=== PATIENT | male | born 1975 | race Caucasian/White ===

== ENCOUNTER → 2020-12-13 15:07 | Outpatient (BNVA) | payer BC, SELFPAY | PROVIDERS: Family Provider Family Medicine; PCP Family Medicine; Visit Provider Specialist | DX: G40.309 Generalized idiopathic epilepsy and epileptic syndromes, not intractable, without status epilepticus (principal); Z79.899 Other long term (current) drug therapy | CPT/HCPCS: 99212; 99214 ==

== ENCOUNTER 2025-02-26 10:06 | Inpatient (IN) | payer OTHER, SELFPAY ==
[2025-02-26] VITALS (15 sets, daily range): BP systolic 102–203; BP diastolic 57–108; PULSE 50–107; RESP 17–26; TEMP 36.6–38; O2SAT 94–98; BMI 33.9
--- OUTSIDE RECORDS SUMMARY | 2025-02-26 10:11 | XMS_ITS | Encounter Summary ---
Author Organization [employer] [facility] Address [address] [place] [address] Care Team Providers Care Nursing Resident Name Role Phone Unavailable Primary Care Provider Unavailabl e Encounter Details Date Type Department Care Team (Latest Contact Info) Description 01/26/2001 Outpatient Historical [facility] [place] [place] [address] [place] [address] Other convulsions (Primary Dx) Social History Tobacco Use Types Packs/Day Years Used Date Smoking Tobacco: Never Assessed Sex and Gender Information Value Date Recorded Sex Assigned at Not on file 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
--- OUTSIDE RECORDS SUMMARY | 2025-02-26 10:11 | XMS_ITS | Encounter Summary ---
Author Organization [facility] Address [address] [place] [address] Care Team Providers Care Manager Quality Compliance Name Role Phone Unavailable Primary Care Provider Unavailabl e Encounter Details Date Type Department Care Team (Latest Contact Info) Description 04/30/2002 Outpatient Historical [facility] [address], [address] [place] [phone] [place] [address] [place] [address] CONVULSIONS, OTHER (CMS/HCC) (Primary Dx) Social History Tobacco Use Types Packs/Day Years Used Date Smoking Tobacco: Never Assessed Sex and Gender Information Value Date Recorded Sex Assigned at Not on file 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
--- OUTSIDE RECORDS SUMMARY | 2025-02-26 10:11 | XMS_ITS | Encounter Summary ---
Author Organization [facility] Address [address] [place] [address] Care Team Providers Care Aquatics Assistant Department Head Name Role Phone Unavailable Primary Care Provider Unavailabl e Encounter Details Date Type Department Care Team (Latest Contact Info) Description 05/05/2003 Outpatient Historical [facility] [address], [address] [place] [phone] [place] [address] [place] [address] CONVULSIONS, OTHER (CMS/HCC) (Primary Dx) Social History Tobacco Use Types Packs/Day Years Used Date Smoking Tobacco: Never Assessed Sex and Gender Information Value Date Recorded Sex Assigned at Not on file 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
--- OUTSIDE RECORDS SUMMARY | 2025-02-26 10:11 | XMS_ITS | Encounter Summary ---
Author Organization [employer] [facility] Address [address] [place] [address] Care Team Providers Care Lockstitch Cup Setter Name Role Phone Unavailable Primary Care Provider Unavailabl e Encounter Details Date Type Department Care Team (Late st Contact Info) Description 01/26/2001 Outpatient Historical [facility] [place] [address] [place] [address] Encounter for long-term (current) use of other medications (Primary Dx); Other convulsions Social History Tobacco Use Types Packs/Day Years Used Date Smoking Tobacco: Never Assessed Sex and Gender Information Value Date Recorded Sex Assigned at Not on file 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
--- OUTSIDE RECORDS SUMMARY | 2025-02-26 10:11 | XMS_ITS | Clinical Summary ---
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
--- OUTSIDE RECORDS SUMMARY | 2025-02-26 10:11 | XMS_ITS | Encounter Summary ---
Author Organization [employer] [facility] Address [address] [place] [address] Care Team Providers Care Fitness And Wellness Manager Name Role Phone Unavailable Primary Care Provider Unavailabl e Encounter Details Date Type Department Care Team (Latest Contact Info) Description 12/29/1998 Outpatient Historical [facility] Jw Smith MD NO ADDRESS ON FILE Rash and other nonspecific skin eruption (Primary Dx) Social History Tobacco Use Types Packs/Day Years Used Date Smoking Tobacco: Never Assessed Sex and Gender Information Value Date Recorded Sex Assigned at Not on file 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
--- OUTSIDE RECORDS SUMMARY | 2025-02-26 10:11 | XMS_ITS | Encounter Summary ---
Author Organization [facility] Address [address] [place] [address] Care Team Providers Care Ammonia Refrigeration Technician Name Role Phone Unavailable Primary Care Provider Unavailabl e Encounter Details Date Type Department Care Team (Latest Contact Info) Description 12/18/2005 Outpatient Historical [facility] [address], [address] [place] [phone] [place] [address] [place] [address] Other Convulsions (CMS/HCC) (Primary Dx); Essential and Other Specified Forms of Tremor Social History Tobacco Use Types Packs/Day Years Used Date Smoking Tobacco: Never Assessed Sex and Gender Information Value Date Recorded Sex Assigned at Not on file 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
--- OUTSIDE RECORDS SUMMARY | 2025-02-26 10:11 | XMS_ITS | Encounter Summary ---
Author Organization [facility] Address [address] [place] [address] Care Team Providers Care Medical Claims Representative Name Role Phone Unavailable Primary Care Provider Unavailabl e Encounter Details Date Type Department Care Team (Latest Contact Info) Description 01/17/1998 Outpatient Historical [facility] [place] [address] [place] [address] Other convulsions (Primary Dx) Social History Tobacco Use Types Packs/Day Years Used Date Smoking Tobacco: Never Assessed Sex and Gender Information Value Date Recorded Sex Assigned at Not on file 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
--- OUTSIDE RECORDS SUMMARY | 2025-02-26 10:11 | XMS_ITS | Encounter Summary ---
Author Organization [employer] Address [address] [place] [address] Care Team Providers Care Supervisor Veneer Name Role Phone Unavailable Primary Care Provider Unavailabl e Encounter Details Date Type Department Care Team (Latest Contact Info) Description 01/18/1999 Outpatient Historical [facility] [place] [place] [address] [place] [address] Other convulsions (Primary Dx) Social History Tobacco Use Types Packs/Day Years Used Date Smoking Tobacco: Never Assessed Sex and Gender Information Value Date Recorded Sex Assigned at Not on file 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
--- OUTSIDE RECORDS SUMMARY | 2025-02-26 10:11 | XMS_ITS | Encounter Summary ---
Author Organization [facility] Address [address] [place] [address] Care Team Providers Care Size Stamper Name Role Phone Unavailable Primary Care Provider Unavailabl e Encounter Details Date Type Department Care Team (Latest Contact Info) Description 12/17/[address] 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
--- OUTSIDE RECORDS SUMMARY | 2025-02-26 10:11 | XMS_ITS | Encounter Summary ---
Author Organization [employer] [facility] Address [address] [place] [address] Care Team Providers Care Flake Or Shred Roll Operator Name Role Phone Unavailable Primary Care Provider Unavailabl e Encounter Details Date Type Department Care Team (Latest Contact Info) Description 01/22/2000 Outpatient Historical [facility] [place] [address] [place] [address] Other convulsions (Primary Dx) Social History Tobacco Use Types Packs/Day Years Used Date Smoking Tobacco: Never Assessed Sex and Gender Information Value Date Recorded Sex Assigned at Not on file 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
--- OUTSIDE RECORDS SUMMARY | 2025-02-26 10:11 | XMS_ITS | Encounter Summary ---
Author Organization [employer] [facility] Address [address] [place] [address] Care Team Providers Care Claim Manager Name Role Phone Unavailable Primary Care Provider Unavailabl e Encounter Details Date Type Department Care Team (Latest Contact Info) Description 12/01/1998 Outpatient Historical [facility] Jw Smith MD NO ADDRESS ON FILE Other convulsions (Primary Dx); Encounter for long-term (current) use of other medications Social History Tobacco Use Types Packs/Day Years Used Date Smoking Tobacco: Never Assessed Sex and Gender Information Value Date Recorded Sex Assigned at Not on file Legal Sex Male 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
--- OUTSIDE RECORDS SUMMARY | 2025-02-26 10:11 | XMS_ITS | Encounter Summary ---
Author Organization [employer] [facility] Address [address] [place] [address] Care Team Providers Care Geological Aide Name Role Phone Unavailable Primary Care Provider Unavailabl e Encounter Details Date Type Department Care Team (Late st Contact Info) Description 01/22/2000 Outpatient Historical [facility] [place] [address] [place] [address] Encounter for long-term (current) use of other medications (Primary Dx); Other convulsions Social History Tobacco Use Types Packs/Day Years Used Date Smoking Tobacco: Never Assessed Sex and Gender Information Value Date Recorded Sex Assigned at Not on file 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
--- NOTE | 2025-02-26 10:37 | ED_ITS ---
HPI - Nausea/Vomiting/Diarrhea 2 General: Chief complaint: Nausea/Vomiting/Diarrhea Stated complaint: Headache N/V sent from Time Seen by Provider: 02/26/25 10:07 History of Present Illness: 49-year-old male presents emergency room states he has not felt well for the last 3 to 4 days. He is nauseous with vomiting and headache. He has noticed concentrated urine. He was at urgent care he was given Zofran and directed to the emergency room for IV fluids. Patient has a history of seizure disorder has not recently had any seizures no recent medication changes. He is on Depakote no recent change in medications no recent seizures Associated symtoms: Denies chest pain or dysuria Related Data Home Medications ?Medication ?Instructions ?Recorded ?Confirmed acetaminophen 500 mg tablet 100 mg PO QID PRN Fever Or Pain 02/26/25 02/26/25 (Tylenol Extra Strength) ibuprofen 200 mg tablet (Advil) 400 mg PO Q6H PRN Feve r Or Pain 02/26/25 02/26/25 Previous Rx's ?Medication ?Instructions ?Recorded divalproex 500 mg tablet,extended See Rx Instructions .Route 12/14/24 release 24 hr .COMPLEX #450 tabs Allergies Allergy/AdvReac Type Severity Reaction Status Date / Time No Known Allergies Allergy Verified 05/20/23 08:01 Review of Systems 2 Const: Denies: fever(s) or chills Card: Denies: chest pain Resp: Denies: dyspnea GI: Denies: abdominal pain : Denies: dysuria, urinary frequency or urinary urgency Musc: Denies: neck pain or back pain Skin/Breast: Denies: rash PFSH ED 2 PFSH: Medical History Seizures Surgical History History of tonsillectomy Family History Other Cancer Social History Smoking and tobacco/nicotine status: never used tobacco/nicotine Alcohol intake: current Alcohol intake frequency: holidays/special occasions only Substance/Drug Use: never Physical Exam 2 Const: GENERAL APPEARANCE: cooperative ORIENTATION/CONSCIOUSNESS: Yes awake, Yes oriented to person, Yes oriented to place and Yes oriented to time HENMT: COMMON NORMALS: normocephalic, atraumatic and hearing grossly normal bilaterally HEAD & SCALP: normocephalic and atraumatic Resp: COMMON NORMALS: normal respiratory effort, No retractions, No use of accessory muscles and clear to auscultation bilaterally AUSCULTATION: clear to auscultation bilaterally Cardio: COMMON NORMALS: regular rate, regular rhythm and No murmurs present (Cardio) RATE: regular rate RHYTHM: regular rhythm GI: COMMON NORMALS: Soft to palpation and No hepatosplenomegaly present A USCULTATION: Yes normoactive bowel sounds PALPATION: Yes Soft to palpation, No Tenderness to palpation present (GI), No Guarding due to palpation present (GI) and Yes No hepatosplenomegaly present Extremity: COMMON NORMALS: normal to inspection, capillary refill normal, no clubbing, cyanosis or edema, no calf tenderness and no pedal edema Neuro: SENSORIUM/ORIENTATION: Yes oriented to person, Yes oriented to place and Yes oriented to time Skin: COMMON NORMALS: no rashes or lesions noted GENERAL SKIN EXAM: no rashes or lesions noted Course 2 Vital Signs: Vital signs: Vital Signs Temperature 99.3 F 02/26/25 10:26 Pulse Rate 103 H 02/26/25 13:30 Respiratory Rate 18 02/26/25 13:43 Blood Pressure 203/108 02/26/25 13:30 Pulse Oximetry 97 02/26/25 13:43 Oxygen Delivery Me thod Room Air 02/26/25 13:30 MDM - Nausea/Vomiting/Diarrhea Medical Decision Making Patient has significant elevation of liver enzymes and his T. bili lipase is normal. No dilation of the common bile duct there is no evidence of gallstones. Liver enzymes and acetaminophen are normal his valproic acid level is therapeutic. Hepatitis panel was also negative. I have asked surgery to see him placed on observation for IV fluids and have hospitalist see as well. Medical Records I reviewed the patient's medical records. Lab Data I reviewed the patient's lab results. 02/26/25 10:35 02/26/25 10:35 Radiology Impressions Gallbladder Ultrasound 02/26/25 11:33 IMPRESSION: Marked gallbladder wall thickening without gallstones. If clinically indicated, HIDA scan would provide a more sensitive evaluation for acute gallbladder pathology. Abdomen/Pelvis CT 02/26/25 12:55 IMPRESSION: 1. Mild nonspecific wall thickening of the gastric antrum and duodenal sweep with subtle adjacent edema. Query gastritis/peptic ulcer disease. 2. Mild gallbladder wall thickening and pericholecystic stranding/edema without radiodense gallstones. If clinically indicated, HIDA scan would provide a more sensitive evaluation for acute gallbladder pathology. 3. Trace right pleural effusion. 4. Additional findings, as above. COMMENTS: Consistent with the [employer]'s Incidental Findings Committee white paper (J Am Sally Radiol 2018): Any incidental renal lesion less than 1 cm or classified as too small to characterize, or any incidental cystic renal lesion characterized as simple-appearing, is likely benign. No follow-up imaging is recommended for these lesions per consensus recommendations based on imaging criteria. Laboratory Results WBC 3.46 10^3/uL (3.29-11.43) 02/26/25 10:35 RBC 5.17 10^6/uL (3.85-5.65) 02/26/25 10:35 Hgb 16.20 g/dL (11.27-16.99) 02/26/25 10:35 Hct 46.9 % (37-53) 02/26/25 10:35 MCV 90.7 fl (82-101) 02/26/25 10:35 MCH 31.3 pg (27-33) 02/26/25 10:35 MCHC 34.5 g/dL (30-55) 02/26/25 10:35 RDW 13.1 % (12.1-15.1) 02/26/25 10:35 Plt Count 60 10^3/cmm (157-399) L 02/26/25 10:35 MPV 10.4 fL (7.4-10.4) 02/26/25 10:35 Neut % (Auto) 59.5 % 02/26/25 10:35 Lymph % (Auto) 32.1 % 02/26/25 10:35 [place] % (Auto) 5.8 % 02/26/25 10:35 Eos % (Auto) 0.0 % 02/26/25 10:35 Baso % (Auto) 1.2 % 02/26/25 10:35 Neut # (Auto) 2.06 10^3/uL (1.8-7.7) 02/26/25 10:35 Lymph # (Auto) 1.1 10^3/uL (0.8-4.8) 02/26/25 10:35 [place] # (Auto) 0.2 10^3/uL (0.2-0.9) 02/26/25 10:35 Eos # (Auto) 0.0 10^3/uL (0.0-0.8) 02/26/25 10:35 Baso # (Auto) 0.0 10^3/uL (0.0-0.1) 02/26/25 10:35 Nucleated RBC % (auto) 0 % 02/26/25 10:35 Nucleated RBCs # 0.0 /100WBC 02/26/25 10:35 Peripher Smr Path Cons Sent for review 02/26/25 10:35 PT 15.80 SECONDS (12.1-14.9) H 02/26/25 10:35 INR 1.18 (0.8-1.2) 02/26/25 10:35 APTT 33.1 SECONDS (23.9-36.7) 02/26/25 10:35 Sodium 134 mmol/L (136-145) L 02/26/25 10:35 Potassium 3.8 mmol/L (3.5-5.1) 02/26/25 10:35 Chloride 97 mmol/L (98-107) L 02/26/25 10:35 Carbon Dioxide 25 mmol/L (22-29) 02/26/25 10:35 Anion Gap 15.8 (5-19) 02/26/25 10:35 BUN 13 mg/dL (6-20) 02/26/25 10:35 Creatinine 1.2 mg/dL (0.7-1.2) 02/26/25 10:35 GFR Calculation 64.6 mL/min (90-130) L 02/26/25 10:35 Glucose 132 mg/dL (65-115) H 02/26/25 10:35 Calculated Osmolality 280 mOsm/kg (285-295) L 02/26/25 10:35 Calcium 8.9 mg/dL (8.5-10.5) 02/26/25 10:35 Total Bilirubin 1.7 mg/dL (0.15-1.2) H 02/26/25 10:35 AST 208 U/L (0-40) H 02/26/25 10:35 ALT 230 U/L (0-41) H 02/26/25 10:35 Alkaline Phosphatase 166 U/L (40-130) H 02/26/25 10:35 Ammonia 48 umol/L (16-60) 02/26/25 12:22 Total Protein 6.3 g/dL (6.6-8.7) L 02/26/25 10:35 Albumin 3.4 g/dL (3.5-5.2) L 02/26/25 10:35 Globulin 2.9 g/dL (1.3-4.6) 02/26/25 10:35 Lipase 46 U/L (13-60) 02/26/25 10:35 Urine Color [place] (Yellow) A 02/26/25 11:15 Urine Appearance Clear (CLEAR) 02/26/25 11:15 Urine pH 6.0 (5-7) 02/26/25 11:15 Ur Specific [place] 1.027 (1.005-1.030) 02/26/25 11:15 Urine Protein 1+ (Negative) A 02/26/25 11:15 Urine Glucose (UA) Negative (Normal) 02/26/25 11:15 Urine Ketones Trace (Negative) 02/26/25 11:15 Urine Blood Negative (Negative) 02/26/25 11:15 Urine Nitrate Positive (Negative) A 02/26/25 11:15 Urine Bilirubin 2+ (Negative) H 02/26/25 11:15 Urine Urobilinogen 4.0 mg/dL (Negative) H 02/26/25 11:15 Ur Leukocyte Esterase Trace (Negative) A 02/26/25 11:15 Urine RBC 3-5 /hpf (0-2) 02/26/25 11:15 Urine WBC 0-5 /hpf (0-5) 02/26/25 11:15 Ur Squamous Epith Cells 0-5 /hpf (0-5) 02/26/25 11:15 Amorphous Sediment Not Reportable 02/26/25 11:15 Urine Bacteria None seen /hpf (NONE) 02/26/25 11:15 Hyaline Casts 2.05 /lpf 02/26/25 11:15 Acetaminophen < 5.0 ug/mL (10-30) L 02/26/25 10:35 Valproic Acid 84.9 ug/mL (50-100) 02/26/25 10:35 Hepatitis A IgM Ab Non-reactive (Nonreactive) 02/26/25 12:22 Hep Bs Antigen Non-reactive (Nonreactive) 02/26/25 12:22 Hep B Core IgM Ab Non-reactive (Nonreactive) 02/26/25 12:22 Hepatitis C Antibody Non-reactive (Nonreactive) 02/26/25 12:22 All radiology interpretation(s) finalized by discharge Discharge Plan Discharge Patient Disposition: Admitted As Inpatient Admit Provider: Jacqui Dye Clinical Impression: Elevated LFTs, Thickening of wall of gallbladder, Primary generalized epilepsy, major Condition: Stable Coding Level of Care Code ED Nibbler Operator for Radha Negrete
--- NOTE | 2025-02-26 10:39 | PC.NURSE ---
educated pt on need for urine sample, provided pt with urinal. pt states will be unable to give sample d/t giving sample at walk in clinic. pt informed of normal saline bolus infusing at this time
[2025-02-26 10:44] LABS: Hematocrit 46.9 % (37-53); Hemoglobin 16.20 g/dL (11.27-16.99); Mean Corpuscular HGB Conc 34.5 g/dL (30-55); Mean Corpuscular Hemoglobin 31.3 pg (27-33); Mean Corpuscular Volume 90.7 fl (82-101); Nucleated Red Blood Cells % 0 %; Platelet Count 60 10^3/cmm (157-399); Red Blood Count 5.17 10^6/uL (3.85-5.65); White Blood Count 3.46 10^3/uL (3.29-11.43)
[2025-02-26 11:00] LABS: Alanine Aminotransferase 230 U/L (0-41); Albumin Level 3.4 g/dL (3.5-5.2); Alkaline Phosphatase 166 U/L (40-130); Anion Gap 15.8 (5-19); Aspartate Amino Transferase 208 U/L (0-40); Blood Urea Nitrogen 13 mg/dL (6-20); Calcium 8.9 mg/dL (8.5-10.5); Carbon Dioxide 25 mmol/L (22-29); Chloride 97 mmol/L (98-107); Creatinine Clr Calc Pharmacy 97.8769; Globulin 2.9 g/dL (1.3-4.6); Glucose 132 mg/dL (65-115); Lipase 46 U/L (13-60); Osmolality Calculated 280 mOsm/kg (285-295); Potassium 3.8 mmol/L (3.5-5.1); Sodium 134 mmol/L (136-145); Total Protein 6.3 g/dL (6.6-8.7)
[2025-02-26 11:03] LABS: Slide Review Slide Review Perform
[2025-02-26 11:24] LABS: Glucose Urine UA Negative (Normal); Nitrate Urine Positive (Negative); Specific Gravity, Urine 1.027 (1.005-1.030)
[2025-02-26 11:27] LABS: Add Urine Microscopic? YES
--- NOTE | 2025-02-26 11:33 | USR_ITS ---
PROCEDURE INFORMATION: Exam: US Abdomen, Limited; Right Upper Quadrant Exam date and time: 02/26/2025 12:33 PM Age: 49 years old Clinical indication: Abnormal findings; Abnormal lab test; Elevated liver enzymes; Additional info: Elevated lfts TECHNIQUE: Imaging protocol: Real time ultrasound of the abdomen with image documentation. Limited exam focused on the right upper quadrant. COMPARISON: No relevant prior studies available. FINDINGS: Liver: Unremarkable. Gallbladder: Marked gallbladder wall thickening without gallstones. No pericholecystic fluid. Negative sonographic Grace's sign, as per the performing hand edger. Biliary ducts: No stones. No ductal dilatation. Pancreas: Unremarkable as visualized. Right kidney: No mass. No definite stones. No hydronephrosis. US/US gall bladder [id number] IMPRESSION: Marked gallbladder wall thickening without gallstones. If clinically indicated, HIDA scan would provide a more sensitive evaluation for acute gallbladder pathology.
[2025-02-26 12:00] LABS: INR 1.18 (0.8-1.2); Prothrombin Time 15.80 SECONDS (12.1-14.9)
[2025-02-26 12:01] LABS: Partial Thromboplastin Time 33.1 SECONDS (23.9-36.7)
[2025-02-26 12:12] LABS: Acetaminophen < 5.0 ug/mL (10-30)
[2025-02-26 12:49] LABS: Ammonia 48 umol/L (16-60)
--- NOTE | 2025-02-26 12:55 | CTR_ITS ---
PROCEDURE INFORMATION: Exam: CT Abdomen And Pelvis With Contrast Exam date and time: 02/26/2025 1:07 PM Age: 49 years old Clinical indication: Fever and nausea and vomiting; Abdominal pain TECHNIQUE: Imaging protocol: Computed tomography of the abdomen and pelvis with contrast. Axial, coronal and sagittal reformatted images were created and reviewed. Radiation optimization: All CT scans at this facility use at least one of these dose optimization techniques: automated exposure control; mA and/or kV adjustment per patient size (includes targeted exams where dose is matched to clinical indication); or iterative reconstruction. Contrast material: OMNI 350; Contrast volume: 100 ml; Contrast route: INTRAVENOUS (IV); COMPARISON: US gall bladder [id number] 02/26/2025 12:33 PM RADIATION DOSE METRICS: Total DLP (mGy-cm): 1139.13 FINDINGS: Liver: Unremarkable. Gallbladder and biliary ducts: Mild gallbladder wall thickening and pericholecystic stranding/edema without radiodense gallstones. Pancreas: Unremarkable. Spleen: Mild splenomegaly. 7 mm low-density splenic lesion, too small to characterize. Adrenal glands: Normal. No mass. Kidneys and ureters: This 1.4 cm right renal cyst (no follow-up is indicated based on the imaging appearance). No radiodense calculi. No hydronephrosis. Stomach and bowel: Mild nonspecific wall thickening of the gastric antrum and duodenal sweep with subtle adjacent edema. No obstruction. No pneumatosis. Appendix: Normal. Intraperitoneal space: Trace nonspecific free pelvic fluid, likely reactive. No organized fluid collection. No free air. Vasculature: Minimal atherosclerotic disease. No aneurysm or dissection. Lymph nodes: No pathologically enlarged lymph nodes. Urinary bladder: Unremarkable as visualized. Reproductive: Unremarkable. Bones/joints: No acute osseous abnormality. Mild degenerative changes. Soft tissues: Unremarkable. CT/CT abdomen pelvis w con* [id number] IMPRESSION: 1. Mild nonspecific wall thickening of the gastric antrum and duodenal sweep with subtle adjacent edema. Query gastritis/peptic ulcer disease. 2. Mild gallbladder wall thickening and pericholecystic stranding/edema without radiodense gallstones. If clinically indicated, HIDA scan would provide a more sensitive evaluation for acute gallbladder pathology. 3. Trace right pleural effusion. 4. Additional findings, as above. COMMENTS: Consistent with the [employer]'s Incidental Findings Committee white paper (J Am Sally Radiol 2018): Any incidental renal lesion less than 1 cm or classified as too small to characterize, or any incidental cystic renal lesion characterized as simple-appearing, is likely benign. No follow-up imaging is recommended for these lesions per consensus recommendations based on imaging criteria.
[2025-02-26 13:10] LABS: Hepatitis A Antibody IgM Non-Reactive (Nonreactive); Hepatitis B Surface Antigen Non-Reactive (Nonreactive)
[2025-02-26] MEDS: morphine 4 mg/mL SDV 1 mL IVP (13:43)
[2025-02-26] MEDS: ondansetron 2 mg/ML SDV 2 mL 4 MG IVP (13:49)
--- NOTE | 2025-02-26 15:05 | P.CONIM_ITS ---
Providers/Reason For Consult 2 Consulting Physician/Specialty*: General Surgery Reason for Consult*: Evaluation for biliary pathology Primary Care Provider: Javier Hernandez MD History of Present Illness History of Present Illness Ry Odell is a 49 year old male who presents to the hospital with severe headache for the last 2 to 3 days associated with 2 episodes of nausea and vomiting. No abdominal pain no other GI symptoms. Patient has history of use of valproate for seizure disease. He also frequently takes Tylenol. Workup done in the ER shows a normal white count, AST and ALT are in the 200 range the total bilirubin is 1.7. Valproate level is normal as well as Tylenol level. Ultrasound CT scan of the abdomen pelvis was done showed no evidence of gallstones but the gallbladder wall appears to be thickened. There are some mild gastroduodenitis also. Review of Systems 2 General: Reports: 10 or more systems reviewed and unremarkable except in HPI and below Medications/Allergies Home Medications ?Medication ?Instructions ?Recorded ?Confirmed ?Last Taken ?Type divalproex 500 mg tablet,extended See Rx Instructions .Route 12/14/24 02/26/25 02/26/25 08:00 Rx release 24 hr .COMPLEX #450 tabs acetaminophen 500 mg tablet 100 mg PO QID PRN Fever Or Pain 02/26/25 02/26/25 02/25/25 History (Tylenol Extra Strength) ibuprofen 200 mg tablet (Advil) 400 mg PO Q6H PRN Feve r Or Pain 02/26/25 02/26/25 02/25/25 History Allergies Allergy/AdvReac Type Severity Reaction Status Date / Time No Known Allergies Allergy Verified 05/20/23 08:01 PFSH Acute 2 PFSH: Medical History Seizures Surgical History History of tonsillectomy Family History Other Cancer Social History Smoking and tobacco/nicotine status: never used tobacco/nicotine Alcohol intake: current Alcohol intake frequency: holidays/special occasions only Substance/Drug Use: never Vitals/I&O/Wt Last Vital Signs Temp 99.3 F 02/26/25 10:26 Pulse 103 H 02/26/25 13:30 Resp 18 02/26/25 13:43 BP 203/108 02/26/25 13:30 Pulse Ox 97 02/26/25 13:43 O2 Del Method Room Air 02/26/25 13:30 02/26/25 02/26/25 02/26/25 06:59 14:59 22:59 Intake Total 1000 / 1000 Balance 1000 / 1000 Weight last 48 hrs Weight 250 lb Physical Exam 2 GI: OTHER: Abdominal exam is benign the abdomen is soft nontender nondistended, negative Grace sign. Absolutely no abdominal tenderness Data 02/26/25 10:35 02/26/25 10:35 A&P Assessment and plan (1) Primary generalized epilepsy, major: (2) Elevated LFTs: (3) Thickening of wall of gallbladder: Plan After complete history, physical examination and review of all available clinical data the following is my assessment. Patient clinical picture does not match acute cholecystitis. He does not meet diagnostic criteria. While gallbladder wall is thickened in imaging there is no evidence of gallstones. Patient has no abdominal pain. No fever. No white count. With this findings and also finding of elevation of the LFTs and derangement of the liver function in the setting of history of bile parotic acid intake I think most likely cause of patient's symptoms is a long-term effect of this medication as it is known to be associated with liver injury elevation of the LFTs and symptoms consistent with what patient is describing. Medical team has been consulted and will be admitting patient for observation due to these findings. From the surgical standpoint no acute surgical intervention is indicated at this time, due to finding of wall thickening I suggest a short course of antibiotics but no additional intervention is anticipated. General surgery will continue to follow while the patient is in house. PDMP PDMP Reviewed: Not Reviewed Coding Level of Care Code Acute Code for Chg Fwd Diagnoses Primary generalized epilepsy, major G40.309 Elevated LFTs R79.89 Thickening of wall of gallbladder K82.8
--- NOTE | 2025-02-26 17:10 | MRR_ITS ---
PROCEDURE INFORMATION: Exam: MR Abdomen Without Contrast, Biliary System Exam date and time: 02/26/2025 5:58 PM Age: 49 years old Clinical indication: Pain and abnormal findings; Abnormal lab test; Elevated liver enzymes; Abdominal pain; Localized; Right upper quadrant (ruq); Additional info: Elevated liver enzymes, thickening of gall bladder, urobilinogen in urine TECHNIQUE: Imaging protocol: MR of the abdomen without contrast. Exam focused on the biliary system and pancreatic ducts. Routine 3D-MRCP images were acquired and processed without radiologist supervision. COMPARISON: CT abdomen pelvis w con and ultrasound right upper quadrant 02/26/2025 FINDINGS: Pleural spaces: Trace amount of right pleural effusion. Liver: Mildly enlarged or elongated measuring 19 cm in the craniocaudal span with no fatty changes or mass no mass. Gallbladder and biliary ducts: The gallbladder is normal in size with normal wall thickness of 2 mm and 3 mm thick layer of pericholecystic fluid with no obvious gallstones. There is no biliary dilatation. MRCP images are significantly degraded by motion artifacts inadequate to assess for choledocholithiasis. Pancreas: Normal signal. No ductal dilation. Spleen: The spleen is mildly enlarged (15.5 cm) with 0.8 cm subcapsular cyst anteriorly. Kidneys: There is trace amount of fluid along the left anterior renal fascia. Stomach and bowel: No abnormal dilatation or wall thickening. Intraperitoneal space: Trace amount of free intraperitoneal fluid. Retroperitoneal space: there is small amount of fluid adjacent to the head of the pancreas, descending portion of the duodenum and the anterior renal fascia on the right much more prominent than on the left side reflecting acute inflammatory process. Lymph nodes: Borderline prominent in size periportal lymph nodes are likely benign reactive in nature with maximal short axis of 1.2 cm. MR/MR MRCP [id number] IMPRESSION: 1. Pericholecystic fluid and edema adjacent to the head of the pancreas, descending portion of the duodenum and along the anterior renal fascia more prominently on the right represents acute inflammatory process, pancreatitis or possibly acalculous cholecystitis. 2. Limited MRCP due to significant motion artifacts. Choledocholithiasis cannot be adequately evaluated.
--- NOTE | 2025-02-26 17:15 | P.HP_ITS ---
Providers/Chief Complaint 2 Admitting Physician: Jacqui Dye MD Primary Care Provider: Javier Hernandez MD Chief Complaint: Headache N/V sent from History of Present Illness Ry Odell is a 49 year old male with past medical history of seizures, gout, pilonidal cyst presented to the hospital today with complaint of headache body aches fatigue this started past week Friday/Friday. He stated about 2 weeks ago he found 4 ticks on him that he took off while he was in the shower. He stated at first it was just headache and feeling tired however this morning after he showered he started vomiting. He just felt sick. Denies any alcohol use denies diarrhea. No ill contacts. Does not drink from water. Has had a low-grade fever chills body aches. Does have a history of seizures and is on Depakote at home. Denies any abdominal pain at this time. Does have a slight cough however has no other symptoms. Also has a reduced appetite. Also reports darker than usual urine. Patient is on 1 g of Depakote in the morning and 1.5 g at bedtime. In the ER noted to have elevated liver enzymes AST 208, ALT 230, alkaline phosphatase 166, platelets 60, TSH 4.54, procalcitonin 0.92. Urinalysis positive for nitrates, 2+ bilirubin, 4+ urobilinogen, trace leukocyte esterase. Hepatitis panel was negative. CT abdomen pelvis shows mild nonspecific wall thickening of the gastric antrum and duodenal sweep with subtle adjacent edema. Query gastritis/peptic ulcer disease. Mild gallbladder wall thickening and pericholecystic stranding/edema without radiodense gallstones. If clinical indicated HIDA scan would provide a more sensitive evaluation for acute gallbladder pathology. Trace right pleural effusion. Gallbladder ultrasound shows marked gallbladder wall thickening without gallstones. If clinically indicated HIDA scan would provide a more sensitive evaluation for acute gallbladder pathology. Patient was seen by general surgeon in ER. He recommends ordering empiric antibiotics for short course. No indication for surgery at this time. Patient denies smoking and alcohol use. Medications/Allergies Home Medications ?Medication ?Instructions ?Recorded ?Confirmed ?Last Taken ?Type divalproex 500 mg tablet,extended See Rx Instructions .Route 12/14/24 02/26/25 02/26/25 08:00 Rx release 24 hr .COMPLEX #450 tabs acetaminophen 500 mg tablet 100 mg PO QID PRN Fever Or Pain 02/26/25 02/26/25 02/25/25 History (Tylenol Extra Strength) ibuprofen 200 mg tablet (Advil) 400 mg PO Q6H PRN Feve r Or Pain 02/26/25 02/26/25 02/25/25 History Allergies Allergy/AdvReac Type Severity Reaction Status Date / Time No Known Allergies Allergy Verified 05/20/23 08:01 PFSH Acute 2 PFSH: Medical History Seizures Surgical History History of tonsillectomy Family History Other Cancer Social History Smoking and tobacco/nicotine status: never used tobacco/nicotine Alcohol intake: current Alcohol intake frequency: holidays/special occasions only Substance/Drug Use: never Vitals/I&O/Wt Last Vital Signs Temp 99.3 F 02/26/25 10:26 Pulse 103 H 02/26/25 13:30 Resp 18 02/26/25 13:43 BP 203/108 02/26/25 13:30 Pulse Ox 97 02/26/25 13:43 O2 Del Method Room Air 02/26/25 13:30 02/26/25 02/26/25 02/26/25 06:59 14:59 22:59 Intake Total 1000 / 1000 Balance 1000 / 1000 Weight last 48 hrs Weight 113.398 kg Physical Exam 2 Narrative: General: Alert oriented x3, patient seen in bed appearing comfortable at this time, family ember at bedside HEENT: Normocephalic, atraumatic, EOMI, breathing room air. Appears comfortable. Cardio: Regular rate rhythm, normal S1-S2, Respiratory: Clear to auscultation bilaterally no wheezes no rhonchi GI: Abdomen soft, nontender, nondistended, bowel sounds +, benign abdominal exam Extremities: Pulses 2+, no edema, no cyanosis Data 02/26/25 10:35 02/26/25 10:35 A&P Assessment and plan (1) Fever: (2) Body aches: (3) Chills: (4) Nausea: (5) Thrombocytopenia: (6) Vomiting: (7) Elevated LFTs: (8) Thickening of wall of gallbladder: (9) Primary generalized epilepsy, major: Plan #Fever body aches headache, chills #Possible tickborne disease #History of tick bites 2 weeks ago #Thrombocytopenia #Elevated liver enzymes #Gallbladder wall thickening, possible acute cholecystitis? #Nausea vomiting #History of seizures, stable on Depakote #History of gout ? Appreciate general surgery recommendations for query of acute cholecystitis ? Patient's urobilinogen, urine bilirubin not elevated. Urine is dark tea colored. I will go ahead and check an MRCP. Ideally would be check a HIDA scan however we do not have nuclear studies available till Friday morning. ? I will place patient on Zosyn empirically for cholecystitis possibly. ? There may also be strong possibility of tickborne illness secondary to elevated liver enzymes with thrombocytopenia. Patient does not have a rash on his body. He has been having low-grade fever, body aches, chills. ? Will check tick panel. ? Will empirically treat with doxycycline x 10 days at this time. ? Valproic acid level is normal. ? Check peripheral smear ? Check GGT ? Check CPK ? Zofran for nausea ? Patient is status post 2 L normal saline bolus in ER ? Continue normal saline 125 cc/h ? Will order for clear liquid diet at this time. Will slowly advance as tolerated. ? Will recheck labs in a.m. CBC CMP magnesium ? Check blood cultures ? Check EKG to obtain baseline. Full Code SCDS For dvt ppx We will avoid heparin secondary to low platelets. PDMP PDMP Reviewed: Not Reviewed Attestations 2 Medical Necessity Statement*: Greater than 2 midnight stay for management of possible tickborne illness thrombocytopenia, elevated liver enzymes, ruling out cholecystitis. MRCP pending at this time. Diagnoses Fever R50.9 Body aches R52 Chills R68.83 Nausea R11.0 Thrombocytopenia D69.6 Vomiting R11.10 Elevated LFTs R79.89 Thickening of wall of gallbladder K82.8 Primary generalized epilepsy, major G40.309
[2025-02-26 17:27] LABS: LAB Peripheral Smear Sent for Review
[2025-02-26 17:46] LABS: Procalcitonin 0.92 ng/mL (0-0.5); Thyroid Stimulating Hormone 4.54 uIU/mL (0.27-4.20)
--- OUTSIDE RECORDS SUMMARY | 2025-02-26 18:04 | XMS_ITS | Encounter Summary ---
Author Organization [facility] Address [address] [place] [address] Care Team Providers Care Member Of Technical Staff Name Role Phone Unavailable Primary Care Provider Unavailabl e Encounter Details Date Type Department Care Team (Latest Contact Info) Description 12/18/[address] 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
--- OUTSIDE RECORDS SUMMARY | 2025-02-26 18:04 | XMS_ITS | Encounter Summary ---
Author Organization [employer] [facility] Address [address] [place] [address] Care Team Providers Care Can Slider Name Role Phone Unavailable Primary Care Provider Unavailabl e Encounter Details Date Type Department Care Team (Late st Contact Info) Description 01/26/2001 Outpatient Historical [facility] [place] [address] [place] [address] Encounter for long-term (current) use of other medications (Primary Dx); Other convulsions Social History Tobacco Use Types Packs/Day Years Used Date Smoking Tobacco: Never Assessed Sex and Gender Information Value Date Recorded Sex Assigned at Not on file 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
--- OUTSIDE RECORDS SUMMARY | 2025-02-26 18:04 | XMS_ITS | Continuity of Care Document ---
Author Organization COY - Richar Marquez [facility] Judith Perales, [facility] Address [address] [facility] [place] [address] Care Team Providers Care Fruit Pitter Name Role Phone ROSY DAVID Primary Care Provider Unavailabl e Assessment No assessment recorded. Plan of Treatment Reminders Order Date Submit Date Provider Last Modified By Organization Details Last Modified Time Details Appointments ACUTE VISIT 2024 09:10A M WALK-IN Not available Not available Not available Lab urinalysi s, dipstick 2024 025 ITALO [facility] ([facility] [address] [place], [address], 02/26/2025 11:00:22 Referral None recorded. Procedures None recorded. Surgeries None recorded. Imaging None recorded. Medication Orders ondansetr on HCl (PF) 4 mg/2 mL injection solution 2024 025 jhouts Not available 02/26/2025 11:09:19 Patient TargetsNo targets recorded. Patient InstructionsNo instructions recorded. Reason for Referral None Reported. Results Created Date Observation Date Name Description Value Unit Range Abnormal Flag Note LastModifiedBy Organization Detail LastModifiedTime 02/27/2002/26/2025 urina lysis , dipst ick Leukocytes Negati ve Not Available [facility] ([facility] [address] [place], [address], 02/26/2025 10:41:44 02/27/20 25 02/26/2025 urina lysis , dipst ick Nitrite negati ve Not Available [facility] ([facility] [address] [place], [address], 02/26/2025 10:41:44 02/27/20 25 02/26/2025 urina lysis , dipst ick Urobilinogen 8 Not Available [facility] ([facility]) [address] [place], [address], 02/26/2025 10:41:44 02/27/20 25 02/26/2025 urina lysis , dipst ick Protein 100 Not Available [facility] ([facility]) [address] [place], [address], 02/26/2025 10:41:44 02/27/20 25 02/26/2025 urina lysis , dipst ick pH 5.5 Not Available [facility] ([facility]) [address] [place], [address], 02/26/2025 10:41:44 02/27/20 25 02/26/2025 urina lysis , dipst ick Blood Non-He molyze d: Trace Not Available [facility] ([facility] [address] [place], [address], 02/26/2025 10:41:44 02/27/20 25 02/26/2025 urina lysis , dipst ick Specific [place] 1.020 Not Available [facility] ( [facility] [address] [place], [address], 02/26/2025 10:41:44 02/27/20 25 02/26/2025 urina lysis , dipst ick Ketone Small Not Available [facility] ([facility]) [address] [place], [address], 02/26/2025 10:41:44 02/27/20 25 02/26/2025 urina lysis , dipst ick Bilirubin Modera te Not Available [facility] ([facility] [address] [place], [address], 02/26/2025 10:41:44 02/27/20 25 02/26/2025 urina lysis , dipst ick Glucose 100 Not Available [facility] ([facility]) [address] [place], [address], 02/26/2025 10:41:44 02/27/20 25 02/26/2025 urina lysis , dipst ick Appearance Clear Not Available [facility] ( [facility]) [address] [place], [address], 02/26/2025 10:41:44 02/27/20 25 02/26/2025 urina lysis , dipst ick Color Dark Yellow Not Available [facility] [address] [place], [address], 02/26/2025 10:41:44 Result Notes None recorded. Problems Name Problem SNOMED Code Status Onset Date Resolution Date Notes Provider Name and Address Organization Details Recorded Time Epilepsy 71324560 Active 2021 epilepsy; 2 3:50PM by Henrietta Medina, Office Visit; Promoted; acuity set as *; Not Available [facility] 3 03:08:33 Fitting procedur e Completed 201710/15/2017 Seizures - Status is Inactive; 8 10:18AM by Kriss Tavares LPN, Annotatio n/Joanie m; Promoted; acuity set as *; Not Available [facility] 3 03:08:34 Tonsille ctomy Active 2021 Tonsillec kallie; 2 3:50PM by Henrietta Medina, Office Visit; Promoted; acuity set as *; Not Available [facility] 3 03:08:34 Problem Notes None recorded. Medical Equipment None Reported. Allergies No known drug allergies Medications Name Sig Start Date Stop Date Status Note LastModified by Organization Details LastModified Time colchicin e see note 02/26 completed 436; Recorded 04/01/20 2:39PM by Kriss Tavares LPN (Authori cordell through Rosy David MD), Annotati on/Adden dum; Refill Quantity : 0; Not Available Not Available Not Available Depakote active Not Available Not Avai lable Not Available diclofena c sodium two times daily 02/26 completed Recorded 09/14/19 4:48PM by Marko Pierre MD, Office Visit; Refill Quantity : 60; Tablet; Not Available Not Available Not Available prednison e use as directed per instruct ions in pack 02/26 completed 436; Recorded 04/01/20 2:39PM by Kriss Tavares LPN (Authornathalia landa through Rosy David MD), Annotati on/Adden dum; Refill Quantity : 0; Not Available Not Available Not Available ondansetr on HCl (PF) 4 mg/2 mL injection solution Take 4 mg every day by injectio n route for 1 day. 2024 active Not Available Not Available Not Avai lable Vitals Date Recorded Body height Body mass index (BMI) Body weight Oxygen saturation Oxygen saturation in Arterial blood by Pulse oximetry Heart rate Body temperature Systolic And Diastolic Provider Name and Address Organization Details Last Updated DateTime 182.88 cm 34.2 kg/m2 592068. 28 g 97 % 97 % 120 /min 99.9 [degF] 138/80 mm[Hg] Kim Dacosta [facility] 10:20:19 Social History Question Answer Notes LastModified by Organizat ion Details LastModified Time Tobacco Smoking Status Never Smoker Kim rangel [facility] 02/26/2025 10:16:46 What Was The Date Of Your Most Recent Tobacco Screening? 02/26/2025 [email or web address] Information not available 02/26/2025 Sex: Unknown Functional Status None recorded. Mental Status None recorded. Family History Nothing Reported. Medical History No medical history recorded. Immunizations Vaccine Type Date Status Note Provider Nam e and Address Organization Details Recorded Time Influenza, split virus, trivalent, preservative 0 completed Not Available [facility] 03/22/2023 02:44:25 COVID-19, mRNA, LNP-S, PF, 100 mcg/0.5mL dose or 50 mcg/0.25mL dose 1 completed Not Available [facility] 02/26/2025 10:11:04 COVID-19, mRNA, LNP-S, PF, 100 mcg/0.5mL dose or 50 mcg/0.25mL dose 1 completed Not Available [facility] 02/26/2025 10:11:04 Past Encounters Encounter ID Performer Location Encounter Start Date Encounter Closed Date Diagnosis/Indication Diagnosis SNOMED-CT Code Diagnosis ICD10 Code Diagnosis Note [id number] JOSE MIGUEL RANDOLPH [facility] [address] [place] [address] 02/26/2025 10:08:40 02/26/2025 12:45:13 Viral gastroenteritis 334339527 A08.4 Due to dehydratio n, recommende d patient present to ER for fluids and labs. Agrees to plan. Health Concerns Section Related Observation LastModified by Organization Detai ls LastModified Time None Recorded Concern Status LastModified by Organization Details LastModified Time None Recorded Payers Encounter Date Sequence Insurance Name Policy Number Policy Baltazar Covered Member ID Baltazar Member ID Guarantor Name 02/26/2025 1 [facility] [id number] Ry Odell [id number] Ry Odell Notes Date Note Type Note Provider Name and Address Organization Details Recorded Time 02/26/2025 text/html walk inx2 days MERCEDES, fatigue, vomiting, decreased intake. Patient complains of very dark urine. JOSE MIGUEL RANDOLPH [address] [place] [address], [phone], [facility] 02/26/2025 11:22:25
--- OUTSIDE RECORDS SUMMARY | 2025-02-26 18:04 | XMS_ITS | Encounter Summary ---
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
--- OUTSIDE RECORDS SUMMARY | 2025-02-26 18:04 | XMS_ITS | Encounter Summary ---
Author Organization [employer] [facility] Address [address] [place] [address] Care Team Providers Care Home Appliance Technician Name Role Phone Unavailable Primary Care Provider Unavailabl e Encounter Details Date Type Department Care Team (Latest Contact Info) Description 01/18/1999 Outpatient Historical [facility] [place] [address] [place] [address] Other convulsions (Primary Dx) Social History Tobacco Use Types Packs/Day Years Used Date Smoking Tobacco: Never Assessed Sex and Gender Information Value Date Recorded Sex Assigned at Not on file 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
--- OUTSIDE RECORDS SUMMARY | 2025-02-26 18:04 | XMS_ITS | Encounter Summary ---
Author Organization [employer] [facility] Address [address] [place] [address] Care Team Providers Care Washing Machine Operator Name Role Phone Unavailable Primary Care Provider Unavailabl e Encounter Details Date Type Department Care Team (Late st Contact Info) Description 01/22/2000 Outpatient Historical [facility] [place] [address] [place] [address] Encounter for long-term (current) use of other medications (Primary Dx); Other convulsions Social History Tobacco Use Types Packs/Day Years Used Date Smoking Tobacco: Never Assessed Sex and Gender Information Value Date Recorded Sex Assigned at Not on file 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
--- OUTSIDE RECORDS SUMMARY | 2025-02-26 18:04 | XMS_ITS | Encounter Summary ---
Author Organization [facility] Address [address] [place] [address] Care Team Providers Care Mock Up Builder Name Role Phone Unavailable Primary Care Provider Unavailabl e Encounter Details Date Type Department Care Team (Latest Contact Info) Description 04/30/2002 Out[facility] [place] [facility] [address], [address] [place] [id number] [place] [address] [place] [address] CONVULSIONS, OTHER (CMS/HCC) (Primary Dx) Social History Tobacco Use Types Packs/Day Years Used Date Smoking Tobacco: Never Assessed Sex and Gender Information Value Date Recorded Sex Assigned at Not on file 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
--- OUTSIDE RECORDS SUMMARY | 2025-02-26 18:04 | XMS_ITS | Encounter Summary ---
Author Organization [employer] [facility] Address [address] [place] [address] Care Team Providers Care Biometrics Analyst Name Role Phone Unavailable Primary Care Provider Unavailabl e Encounter Details Date Type Department Care Team (Latest Contact Info) Description 01/26/[address] 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
--- OUTSIDE RECORDS SUMMARY | 2025-02-26 18:04 | XMS_ITS | Encounter Summary ---
Author Organization [facility] Address [address] [place] [address] Care Team Providers Care Redrawer Name Role Phone Unavailable Primary Care Provider Unavailabl e Encounter Details Date Type Department Care Team (Latest Contact Info) Description 12/17/2004 Outpatient Historical [facility] [address], [address] [place] [address] [place] [address] [place] [address] CONVULSIONS, OTHER (CMS/HCC) (Primary Dx) Social History Tobacco Use Types Packs/Day Years Used Date Smoking Tobacco: Never Assessed Sex and Gender Information Value Date Recorded Sex Assigned at Not on file 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
--- OUTSIDE RECORDS SUMMARY | 2025-02-26 18:04 | XMS_ITS | Encounter Summary ---
Author Organization [facility] Address [address] [place] [address] Care Team Providers Care Park Ranger Name Role Phone Unavailable Primary Care Provider Unavailabl e Encounter Details Date Type Department Care Team (Latest Contact Info) Description 05/05/2003 Outpatient Historical [facility] [address], [address] [place] [phone] [place] [address] [place] [address] CONVULSIONS, OTHER (CMS/HCC) (Primary Dx) Social History Tobacco Use Types Packs/Day Years Used Date Smoking Tobacco: Never Assessed Sex and Gender Information Value Date Recorded Sex Assigned at Not on file 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
--- OUTSIDE RECORDS SUMMARY | 2025-02-26 18:04 | XMS_ITS | Encounter Summary ---
Author Organization [employer] [facility] Address [address] [place] [address] Care Team Providers Care Spreader Operator Name Role Phone Unavailable Primary Care Provider Unavailabl e Encounter Details Date Type Department Care Team (Latest Contact Info) Description 01/22/2000 Outpatient Historical [facility] [place] [address] [place] [address] Other convulsions (Primary Dx) Social History Tobacco Use Types Packs/Day Years Used Date Smoking Tobacco: Never Assessed Sex and Gender Information Value Date Recorded Sex Assigned at Not on file 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
--- OUTSIDE RECORDS SUMMARY | 2025-02-26 18:04 | XMS_ITS | Encounter Summary ---
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
--- OUTSIDE RECORDS SUMMARY | 2025-02-26 18:04 | XMS_ITS | Data Portability ---
Author Organization [facility] Richar Marquez [facility] Judith Perales [facility] Address [address] [facility] [address] [place] [address] Care Team Providers Care Tugboat Captain Name Role Phone DAVID ROSY Primary Care Provider Unavailabl e Assessment No assessment recorded. Plan of Treatment Reminders Order Date Submit Date Provider Last Modified By Organization Details Last Modified Time Details Appointments ACUTE VISIT 2024 09:10A M WALK-IN Not available Not available Not available Lab urinalysi s, dipstick 2024 025 ITALO [facility] ([facility]), [address] [place], [address], 02/26/2025 11:00:22 Referral None recorded. Procedures None [...] dipst ick Leukocytes Negati ve Not Available [facility] ([facility]) [address] [place], [address], 02/26/2025 10:41:44 02/27/20 25 02/26/2025 urina lysis , dipst ick Nitrite negati ve Not Available [facility] ([facility]) [address] [place], [address], 02/26/2025 10:41:44 02/27/20 25 02/26/2025 urina lysis , dipst ick Urobilinogen 8 Not Available [facility] ([facility]) [address] [place], [address], 02/26/2025 10:41:44 02/27/20 25 02/26/2025 urina lysis , dipst ick Protein 100 Not Available [facility] ([facility]) [address] [place], [address], 02/26/2025 10:41:44 02/27/20 25 02/26/2025 urina lysis , dipst ick pH 5.5 Not Available [facility] ([facility]) [address] [place], [address], 02/26/2025 10:41:44 02/27/20 25 02/26/2025 urina lysis , dipst ick Blood Non-He molyze d: Trace Not Available [facility] ([facility]) [address] [place], [address], 02/26/2025 10:41:44 02/27/20 25 02/26/2025 urina lysis , dipst ick Specific Dorothy 1.020 Not Available [facility] ( [facility]) [address] [place], [address], 02/26/2025 10:41:44 02/27/20 25 02/26/2025 urina lysis , dipst ick Ketone Small Not Available [facility] ([facility]) [address] [place], [address], 02/26/2025 10:41:44 02/27/20 25 02/26/2025 urina lysis , dipst ick Bilirubin Modera te Not Available [facility] ([facility]) [address] [place], [address], 02/26/2025 10:41:44 02/27/2002/26/2025 urina lysis , dipst ick Glucose 100 Not Available [facility] ([facility]) [address] [place], [address], 02/26/2025 10:41:44 02/27/20 25 02/26/2025 urina lysis , dipst ick Appearance Clear Not Available [facility] ([facility]) [address] [place], [address], 02/26/2025 10:41:44 02/27/20 25 02/26/2025 urina lysis , dipst ick Color Dark Yellow Not Available [facility] ([facility]) [address] [place], [address], 02/26/2025 10:41:44 Result Notes None recorded. Problems Name Problem SNOMED Code Status Onset Date Resolution Date Notes Provider Name and Address Organization Details Recorded Time Epilepsy 02167893 Active 2021 epilepsy; 2 3:50PM by Henrietta Medina, Office Visit; Promoted; acuity set as *; Not Available [facility] 3 03:08:33 Fitting procedur e Completed 201710/15/2017 Seizures - Status is Inactive; 8 10:18AM by Kriss Tavares LPN, Annotatio n/Adddillonu m; Promoted; acuity set as *; Not Available [facility] 3 03:08:34 Tonsille ctomy Active 2021 Tonsillec kallie; 2 3:50PM by Henrietta Medina, Office Visit; Promoted; acuity set as *; Not Available [facility] 3 03:08:34 Problem Notes None recorded. [...] Last Updated DateTime 182.88 cm 34.2 kg/m2 245031. 28 g 97 % 97 % 120 /min 99.9 [degF] 138/80 mm[Hg] Kim Dacosta [facility] 10:20:19 Social History Question Answer Notes LastModified by Organizat ion Details LastModified Time Tobacco Smoking Status Never Smoker Kim rangel [facility] 02/26/2025 10:16:46 What Was The [...] virus, trivalent, preservative 0 completed Not Available [facility] 03/22/2023 02:44:25 COVID-19, mRNA, LNP-S, PF, 100 mcg/0.5mL dose or 50 mcg/0.25mL dose 1 completed Not Available [facility] 02/26/2025 10:11:04 COVID-19, mRNA, LNP-S, PF, 100 mcg/0.5mL dose or 50 mcg/0.25mL dose 1 completed Not Available [facility] 02/26/2025 10:11:04 Past Encounters Encounter ID Performer Location Encounter Start Date Encounter Closed Date Diagnosis/Indication Diagnosis SNOMED-CT Code Diagnosis ICD10 Code Diagnosis Note [id number] JOSE MIGUEL RANDOLPH [facility] ([facility]) [address] [place] [address] 02/26/2025 10:08:40 02/26/2025 12:45:13 Viral gastroenteritis 728696934 A08.4 Due to dehydratio n, recommende d patient present to ER for fluids and labs. Agrees to plan. Health Concerns Section Related Observation LastModified by Organization Detai ls LastModified Time None Recorded Concern Status LastModified by Organization Details LastModified Time None Recorded Advance Directives Directive None Recorded Payers Insurance Date Sequence Insurance Name Policy Number Policy Baltazar Covered Member ID Baltazar Member ID Guarantor Name 02/26/2025 1 [facility] [id number] Ry Odell [id number] Ry Odell Notes Date Note Type Note Provider Name and Address Organization Details Recorded Time 02/26/2025 text/html walk inx2 days MERCEDES, fatigue, vomiting, decreased intake. Patient complains of very dark urine. JOSE MIGUEL RANDOLPH [address] [place] [address], [phone], [facility] 02/26/2025 11:22:25
--- OUTSIDE RECORDS SUMMARY | 2025-02-26 18:04 | XMS_ITS | Encounter Summary ---
Author Organization [employer] [facility] Address [address] [place] [address] Care Team Providers Care Convolute Tube Winder Name Role Phone Unavailable Primary Care Provider Unavailabl e Encounter Details Date Type Department Care Team (Latest Contact Info) Description 01/17/1998 Outpatient Historical [facility] [place] [address] [place] [address] Other convulsions (Primary Dx) Social History Tobacco Use Types Packs/Day Years Used Date Smoking Tobacco: Never Assessed Sex and Gender Information Value Date Recorded Sex Assigned at Not on file 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
--- OUTSIDE RECORDS SUMMARY | 2025-02-26 18:04 | XMS_ITS | Clinical Summary ---
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
--- NOTE | 2025-02-26 19:05 | ECG_ITS ---
[facility] Date: 2025-02-26 Pat Name: Ry Odell Department: Room: 264 Gender: Male Green End Worker: : 1975 Requested By: Jacqui Dye Order Number: [id number] Reading MD: PANFILO YAÑEZ Measurements Intervals Rosalia Rate: 102 P: -8 ID: [id number] QRS: 37 QRSD: 94 T: 9 QT: 317 QTc: 414 Interpretive Statements SINUS TACHYCARDIA ABNORMAL RHYTHM ECG No previous ECG available for comparison Electronically Signed On 02-26-2025 20:20:30 CDT by PANFILO YAÑEZ [email or web address]
[2025-02-26] MEDS: doxycycline 100 MG in sodium chloride 0.9% (plus) 100 ML IV (19:25)
[2025-02-26] MEDS: pantoprazole 40 mg SDV IVP (19:26)
[2025-02-26] MEDS: piperacillin-tazobactam 3.375 GM in sodium chloride 0.9% (plus) 50 ML IV (19:26)
--- NOTE | 2025-02-26 20:17 | PM.MISC ---
Miscellaneous Note Purpose of Documentation: Update on patient care Note: An MRCP had being obtained for the patient, shows a normal thickness of the gallbladder wall but there is pericholecystic fluid as well as some fluid around the duodenum and the head of the pancreas that is compatible with a local inflammatory process either pancreatitis or acalculous cholecystitis. The likelihood of a calculus cholecystitis in a young, otherwise healthy patient is very low, in addition patient does not have any abdominal pain at this moment. We also see significant evaluation of the LFTs as well as elevation of the GGT which she is unlikely to be compatible with suspected cholecystitis. I have had extensive discussion with the patient we have decided to continue observation for now, IV antibiotics, IV fluids and we will reassess in the morning. In the case of any changes in clinical status we might decide to proceed to the operating room for a diagnostic laparoscopy and possible cholecystectomy. In the case of improvement of his symptoms we will continue medical management as previously indicated. Patient agrees
[2025-02-26] MEDS: divalproex ER 500 mg Tablet (24H) 1500 MG PO (20:43)
[2025-02-27 03:58] VITALS: BP 97/63; PULSE 79; RESP 19; TEMP 36.3; O2SAT 97
[2025-02-27] MEDS: piperacillin-tazobactam 3.375 GM in sodium chloride 0.9% (plus) 50 ML IV ×3 (03:58→22:06)
[2025-02-27 04:53] LABS: Hematocrit 37.7 % (37-53); Hemoglobin 12.80 g/dL (11.27-16.99); Mean Corpuscular HGB Conc 34.0 g/dL (30-55); Mean Corpuscular Hemoglobin 31.5 pg (27-33); Mean Corpuscular Volume 92.9 fl (82-101); Nucleated Red Blood Cells % 0 %; Platelet Count 57 10^3/cmm (157-399); Red Blood Count 4.06 10^6/uL (3.85-5.65); White Blood Count 5.74 10^3/uL (3.29-11.43)
[2025-02-27 05:04] LABS: INR 1.23 (0.8-1.2); Prothrombin Time 16.40 SECONDS (12.1-14.9)
[2025-02-27 05:07] LABS: Alanine Aminotransferase 157 U/L (0-41); Albumin Level 2.8 g/dL (3.5-5.2); Alkaline Phosphatase 116 U/L (40-130); Anion Gap 14.0 (5-19); Aspartate Amino Transferase 112 U/L (0-40); Blood Urea Nitrogen 14 mg/dL (6-20); Calcium 7.5 mg/dL (8.5-10.5); Carbon Dioxide 24 mmol/L (22-29); Chloride 102 mmol/L (98-107); Creatinine Clr Calc Pharmacy 119.3301; Globulin 2.0 g/dL (1.3-4.6); Glucose 90 mg/dL (65-115); Osmolality Calculated 282 mOsm/kg (285-295); Potassium 4.0 mmol/L (3.5-5.1); Sodium 136 mmol/L (136-145); Total Protein 4.8 g/dL (6.6-8.7)
[2025-02-27 05:10] LABS: Magnesium 1.6 mg/dL (1.7-2.3)
--- NOTE | 2025-02-27 07:33 | P.PN_ITS ---
Subjective 2 Subjective: Patient doing well over the last 24 hours. No significant abdominal pain, headache has resolved, no nausea or vomit. Vitals/I&O/Wt Last Vital Signs Temp 97.4 F L 02/27/25 03:58 Pulse 79 02/27/25 03:58 Resp 19 H 02/27/25 03:58 BP 97/63 02/27/25 03:58 Pulse Ox 97 02/27/25 03:58 O2 Del Method Room Air 02/27/25 03:58 02/26/25 02/27/25 02/27/25 22:59 06:59 14:59 Intake Total 1100 / 2100 1033.333 / 3133.333 Output Total 250 / 250 Balance 1100 / 2100 783.333 / 2883.333 Weight last 48 hrs Weight 258 lb 1.6 oz Weight 254 lb Weight 250 lb Physical Exam 2 GI: OTHER: Benign abdominal examination abdomen soft nontender nondistended. Data 02/27/25 03:47 02/27/25 03:47 Micro: Microbiology 02/26/25 18:47 Blood Culture - Preliminary Blood SPECIMEN COLLECTED 02/26/25 12:22 Blood Culture - Preliminary Blood SPECIMEN COLLECTED A&P Assessment and plan (1) Thrombocytopenia: (2) Vomiting: (3) Elevated LFTs: (4) Thickening of wall of gallbladder: Plan I had extensive discussion with the patient regarding imaging findings and laboratory workup. He is currently completely asymptomatic. I have explained that the laboratory workup shows improved liver function but due to the findings of inflammation in the gallbladder on imaging I would be willing to proceed to the OR for a laparoscopic cholecystectomy. We discussed all risk and benefits and potential treatment options including conservative management with IV fluids antibiotics and monitoring. After discussion with patient and family they have decided to wait on surgical intervention and continue with medical management. Is important to note that patient clinical presentation is atypical, he does not have any abdominal pain and his white count is normal. Important also to note in this morning labs his that it appears to be a downtrend on the platelet count, patient noted to be thrombocytopenic, he also had PT and INR done which shows mild elevation of both and the liver function test also show hypoproteinemia and hypoalbuminemia, this tells us that there might be an underlying liver pathology causing patient's symptoms rather than just localized inflammation at the level of the gallbladder. I will discuss this findings with medical team for additional workup and management. As of today patient can have a full liquid diet I will continue to monitor on a daily basis we will continue IV fluids and antibiotics. PDMP PDMP Reviewed: Not Reviewed Attestations 2 Medical Necessity Statement*: Per medical team Coding Level of Care Code Acute Code for Chg Fwd Diagnoses Thrombocytopenia D69.6 Vomiting R11.10 Elevated LFTs R79.89 Thickening of wall of gallbladder K82.8
[2025-02-27 08:00] VITALS: BP 108/66; PULSE 81; RESP 16; TEMP 36.8; O2SAT 96
[2025-02-27] MEDS: divalproex ER 500 mg Tablet (24H) 1000 MG PO (09:28)
[2025-02-27] MEDS: pantoprazole 40 mg SDV IVP ×2 (09:29→20:34)
[2025-02-27] MEDS: doxycycline 100 MG in sodium chloride 0.9% (plus) 100 ML IV ×2 (09:29→20:35)
--- NOTE | 2025-02-27 09:42 | XRR_ITS ---
PROCEDURE INFORMATION: Exam: XR Chest Exam date and time: 02/27/2025 10:10 AM Age: 49 years old Clinical indication: Shortness of breath; SOB TECHNIQUE: Imaging protocol: Radiologic exam of the chest. Views: 1 view. COMPARISON: MR MRCP [id number] 02/26/2025 5:58 PM FINDINGS: Lungs: The pulmonary vessels are within normal limits. The lungs are clear. Pleural spaces: No pneumothorax. Heart/Mediastinum: The cardiomediastinal silhouette is within normal limits. Bones/joints: Osseous structure is unremarkable. XR/XR chest 1V portable [id number] IMPRESSION: No acute pulmonary finding.
--- OUTSIDE RECORDS SUMMARY | 2025-02-27 09:47 | XMS_ITS | Encounter Summary ---
Author Organization [facility] Address [address] [place] [address] Care Team Providers Care Production Helper Name Role Phone Unavailable Primary Care Provider Unavailabl e Encounter Details Date Type Department Care Team (Latest Contact Info) Description 01/18/1999 Outpatient Historical [facility] [place] [address] [place] [address] Other convulsions (Primary Dx) Social History Tobacco Use Types Packs/Day Years Used Date Smoking Tobacco: Never Assessed Sex and Gender Information Value Date Recorded Sex Assigned at Not on file 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
--- OUTSIDE RECORDS SUMMARY | 2025-02-27 09:47 | XMS_ITS | Encounter Summary ---
Author Organization [facility] Address [address] [place] [address] Care Team Providers Care Ui Lead Developer Name Role Phone Unavailable Primary Care Provider Unavailabl e Encounter Details Date Type Department Care Team (Latest Contact Info) Description 01/22/2000 Outpatient Historical [facility] [place] [address] [place] [address] Other convulsions (Primary Dx) Social History Tobacco Use Types Packs/Day Years Used Date Smoking Tobacco: Never Assessed Sex and Gender Information Value Date Recorded Sex Assigned at Not on file 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
--- OUTSIDE RECORDS SUMMARY | 2025-02-27 09:47 | XMS_ITS | Encounter Summary ---
Author Organization [facility] Address [address] [place] [address] Care Team Providers Care Valver Name Role Phone Unavailable Primary Care Provider Unavailabl e Encounter Details Date Type Department Care Team (Latest Contact Info) Description 04/30/[address] 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
--- OUTSIDE RECORDS SUMMARY | 2025-02-27 09:47 | XMS_ITS | Encounter Summary ---
Author Organization [employer] [facility] Address [address] [place] [address] Care Team Providers Care Corduroy Cutting Supervisor Name Role Phone Unavailable Primary Care Provider Unavailabl e Encounter Details Date Type Department Care Team (Late st Contact Info) Description 01/26/2001 Outpatient Historical [facility] [place] [address] [place] [address] Encounter for long-term (current) use of other medications (Primary Dx); Other convulsions Social History Tobacco Use Types Packs/Day Years Used Date Smoking Tobacco: Never Assessed Sex and Gender Information Value Date Recorded Sex Assigned at Not on file 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
--- OUTSIDE RECORDS SUMMARY | 2025-02-27 09:47 | XMS_ITS | Encounter Summary ---
Author Organization [employer] [facility] Address [address] [place] [address] Care Team Providers Care Crawler Dragline Operator Name Role Phone Unavailable Primary Care Provider Unavailabl e Encounter Details Date Type Department Care Team (Late st Contact Info) Description 01/22/2000 Outpatient Historical [facility] [place] [address] [place] [address] Encounter for long-term (current) use of other medications (Primary Dx); Other convulsions Social History Tobacco Use Types Packs/Day Years Used Date Smoking Tobacco: Never Assessed Sex and Gender Information Value Date Recorded Sex Assigned at Not on file 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
--- OUTSIDE RECORDS SUMMARY | 2025-02-27 09:47 | XMS_ITS | Encounter Summary ---
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
--- OUTSIDE RECORDS SUMMARY | 2025-02-27 09:47 | XMS_ITS | Clinical Summary ---
Author Organization [employer] Address 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
--- OUTSIDE RECORDS SUMMARY | 2025-02-27 09:47 | XMS_ITS | Encounter Summary ---
Author Organization [facility] Address [address] [place] [address] Care Team Providers Care Mixing Machine Attendant Name Role Phone Unavailable Primary Care Provider Unavailabl e Encounter Details Date Type Department Care Team (Latest Contact Info) Description 05/05/2003 Outpatient Historical [facility] [address], [address] [place] [phone] [place] [address] [place] [address] CONVULSIONS, OTHER (CMS/HCC) (Primary Dx) Social History Tobacco Use Types Packs/Day Years Used Date Smoking Tobacco: Never Assessed Sex and Gender Information Value Date Recorded Sex Assigned at Not on file 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
--- OUTSIDE RECORDS SUMMARY | 2025-02-27 09:47 | XMS_ITS | Encounter Summary ---
Author Organization [facility] Address [address] [place] [address] Care Team Providers Care Court Usher Name Role Phone Unavailable Primary Care Provider Unavailabl e Encounter Details Date Type Department Care Team (Latest Contact Info) Description 12/18/2005 Outpatient Historical [facility] [address], [address] [place] [phone] [place] [address] [place] [address] Other Convulsions (CMS/HCC) (Primary Dx); Essential and Other Specified Forms of Tremor Social History Tobacco Use Types Packs/Day Years Used Date Smoking Tobacco: Never Assessed Sex and Gender Information Value Date Recorded Sex Assigned at Not on file 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
--- OUTSIDE RECORDS SUMMARY | 2025-02-27 09:47 | XMS_ITS | Encounter Summary ---
Author Organization 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
--- OUTSIDE RECORDS SUMMARY | 2025-02-27 09:47 | XMS_ITS | Encounter Summary ---
Author Organization [facility] Address [address] [place] [address] Care Team Providers Care Business Development Specialist Name Role Phone Unavailable Primary Care Provider Unavailabl e Encounter Details Date Type Department Care Team (Latest Contact Info) Description 12/17/2004 Outpatient Historical [facility] [address], [address] [place] [phone] [place] [address] [place] [address] CONVULSIONS, OTHER (CMS/HCC) (Primary Dx) Social History Tobacco Use Types Packs/Day Years Used Date Smoking Tobacco: Never Assessed Sex and Gender Information Value Date Recorded Sex Assigned at Not on file 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
--- OUTSIDE RECORDS SUMMARY | 2025-02-27 09:47 | XMS_ITS | Encounter Summary ---
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
--- OUTSIDE RECORDS SUMMARY | 2025-02-27 09:47 | XMS_ITS | Encounter Summary ---
Author Organization [employer] [facility] Address [address] [place] [address] Care Team Providers Care Information Technology Intern Name Role Phone Unavailable Primary Care Provider Unavailabl e Encounter Details Date Type Department Care Team (Latest Contact Info) Description 01/26/2001 Outpatient Historical HIS 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
--- NOTE | 2025-02-27 11:12 | P.PN_ITS ---
Subjective 2 Subjective: Seen this morning. No acute events overnight Patient is feeling better. Body aches have improved. Still thrombocytopenic with platelet count of 57. MRCP does show evidence of acute acalculus cholecystitis. Discussed with general surgery. Continue antibiotics at this time. Patient was offered surgery this morning by surgery however he would like to try antibiotics for now. So enzymes slightly improving compared to before. Subjectively patient starting to feel better. Tick panel is pending. Vitals/I&O/Wt Last Vital Signs Temp 98.3 F 02/27/25 08:00 Pulse 81 02/27/25 08:00 Resp 16 02/27/25 08:00 BP 108/66 02/27/25 08:00 Pulse Ox 96 02/27/25 08:00 O2 Del Method Room Air 02/27/25 08:00 02/26/25 02/27/25 02/27/25 22:59 06:59 14:59 Intake Total 1100 / 2100 1033.333 / 3133.333 1330 / 1330 Output Total 250 / 250 Balance 1100 / 2100 783.333 / 2883.333 1330 / 1330 Weight last 48 hrs Weight 117.072 kg Weight 115.212 kg Weight 113.398 kg Physical Exam 2 Narrative: General: Alert oriented x3, patient seen in bed appearing comfortable at this time, family member at bedside HEENT: Normocephalic, atraumatic, EOMI, breathing room air. Appears comfortable. Cardio: Regular rate rhythm, normal S1-S2, Respiratory: Clear to auscultation bilaterally no wheezes no rhonchi GI: Abdomen soft, nontender, nondistended, bowel sounds +, benign abdominal exam Extremities: no edema, no cyanosis Data 02/27/25 03:47 02/27/25 03:47 Micro: Microbiology 02/26/25 18:47 Blood Culture - Preliminary Blood SPECIMEN COLLECTED 02/26/25 12:22 Blood Culture - Preliminary Blood SPECIMEN COLLECTED A&P Assessment and plan (1) Fever: (2) Body aches: (3) Chills: (4) Nausea: (5) Thrombocytopenia: (6) Vomiting: (7) Elevated LFTs: (8) Thickening of wall of gallbladder: (9) Primary generalized epilepsy, major: (10) Acalculous cholecystitis: Plan #Fever body aches headache, chills #Possible tickborne disease #History of tick bites 2 weeks ago #Thrombocytopenia #Elevated liver enzymes #Gallbladder wall thickening, possible acute cholecystitis? #Nausea vomiting #History of seizures, stable on Depakote #History of gout #Acalculous cholecystitis ? Appreciate general surgery recommendations for query of acute cholecystitis ? Patient's urobilinogen, urine bilirubin not elevated. Urine is dark tea colored. I will go ahead and check an MRCP. Ideally would be check a HIDA scan however we do not have nuclear studies available till Friday morning. ? I will place patient on Zosyn empirically for cholecystitis possibly. ? There may also be strong possibility of tickborne illness secondary to elevated liver enzymes with thrombocytopenia. Patient does not have a rash on his body. He has been having low-grade fever, body aches, chills. ? Will check tick panel. ? Will empirically treat with doxycycline x 10 days at this time. ? Valproic acid level is normal. ? Check peripheral smear ? Check GGT ? Check CPK ? Zofran for nausea ? Patient is status post 2 L normal saline bolus in ER ? Continue normal saline 125 cc/h ? Will order for clear liquid diet at this time. Will slowly advance as tolerated. ? Will recheck labs in a.m. CBC CMP magnesium ? Check blood cultures ? Check EKG to obtain baseline. Full Code SCDS For dvt ppx We will avoid heparin secondary to low platelets. 02/27/2025 Continue to monitor patient on doxycycline and Zosyn. Subjectively patient starting to feel better Patient on 57,000. Continue to monitor, INR 1.23. Bilirubin 1.4 General Surgery valuated the patient this morning. Offered surgery however patient would like to try antibiotics first Albumin 2.8, calcium 7.5. Corrected calcium in normal range. Tick panel is pending at this time. Continue current treatment and monitor CMP. Will recheck labs in AM. If patient continues to worsen within another 24 hours may consider transfer to higher level of care for gastroenterology consultation Please reach out to neurology on Friday morning to discuss patient's Depakote dosing. Valproic acid can also cause worsening liver functions. Changed patient's dose without discussing with neurology first. Patient is Dr. Fernández patient. PDMP PDMP Reviewed: Not Reviewed Attestations 2 Medical Necessity Statement*: Greater than 2 midnight stay for management of possible tickborne illness thrombocytopenia, elevated liver enzymes. Patient has acute acalculous cholecystitis. Continue antibiotics and monitor in hospital setting. Diagnoses Fever R50.9 Body aches R52 Chills R68.83 Nausea R11.0 Thrombocytopenia D69.6 Vomiting R11.10 Elevated LFTs R79.89 Thickening of wall of gallbladder K82.8 Primary generalized epilepsy, major G40.309 Acalculous cholecystitis K81.9
[2025-02-27 11:39] VITALS: BP 101/59; PULSE 73; RESP 16; TEMP 36.4; O2SAT 95
--- NOTE | 2025-02-27 14:20 | PM.MISC ---
Miscellaneous Note Purpose of Documentation: Update on patient care Note: Doing well this afternoon no abdominal pain, tolerating diet. Plan will be to advance to a GI soft tomorrow and depending on laboratory workup he may be able to transition to the outpatient setting.
[2025-02-27 16:00] VITALS: BP 112/73; PULSE 80; RESP 16; TEMP 36.8; O2SAT 97
[2025-02-27 18:45] VITALS: TEMP 37.4
[2025-02-27 20:00] VITALS: BP 105/65; PULSE 79; RESP 17; TEMP 37.4; O2SAT 95
[2025-02-27] MEDS: divalproex ER 500 mg Tablet (24H) 1500 MG PO (20:34)
[2025-02-28] VITALS: BP 102/63; PULSE 88; RESP 17; TEMP 36.5; O2SAT 100
[2025-02-28 04:00] VITALS: BP 156/89; PULSE 85; RESP 17; TEMP 36.9; O2SAT 97
[2025-02-28 06:16] LABS: Hematocrit 37.5 % (37-53); Hemoglobin 12.70 g/dL (11.27-16.99); Mean Corpuscular HGB Conc 33.9 g/dL (30-55); Mean Corpuscular Hemoglobin 31.8 pg (27-33); Mean Corpuscular Volume 93.8 fl (82-101); Nucleated Red Blood Cells % 0 %; Platelet Count 59 10^3/cmm (157-399); Red Blood Count 4.00 10^6/uL (3.85-5.65); White Blood Count 8.87 10^3/uL (3.29-11.43)
[2025-02-28] MEDS: piperacillin-tazobactam 3.375 GM in sodium chloride 0.9% (plus) 50 ML IV ×3 (06:18→21:55)
[2025-02-28 06:32] LABS: Alanine Aminotransferase 123 U/L (0-41); Albumin Level 2.8 g/dL (3.5-5.2); Alkaline Phosphatase 161 U/L (40-130); Anion Gap 11.8 (5-19); Aspartate Amino Transferase 82 U/L (0-40); Blood Urea Nitrogen 12 mg/dL (6-20); Calcium 7.9 mg/dL (8.5-10.5); Carbon Dioxide 26 mmol/L (22-29); Chloride 106 mmol/L (98-107); Creatinine Clr Calc Pharmacy 132.4187; Globulin 2.0 g/dL (1.3-4.6); Glucose 85 mg/dL (65-115); Osmolality Calculated 289 mOsm/kg (285-295); Potassium 3.8 mmol/L (3.5-5.1); Sodium 140 mmol/L (136-145); Total Protein 4.8 g/dL (6.6-8.7)
[2025-02-28 06:36] LABS: Magnesium 1.9 mg/dL (1.7-2.3)
[2025-02-28 07:16] LABS: Slide Review Slide Review Perform
[2025-02-28 07:47] VITALS: BP 124/67; PULSE 90; RESP 18; TEMP 36.8; O2SAT 95
[2025-02-28] MEDS: pantoprazole 40 mg SDV IVP ×2 (08:12→21:55)
[2025-02-28] MEDS: divalproex ER 500 mg Tablet (24H) 1000 MG PO (08:13)
--- NOTE | 2025-02-28 08:35 | P.PN_ITS ---
Subjective 2 Subjective: Patient doing well over the last 24 hours no abdominal pain no nausea and vomiting, tolerating full liquid diet. Vitals/I&O/Wt Last Vital Signs Temp 98.3 F 02/28/25 07:47 Pulse 90 02/28/25 07:47 Resp 18 02/28/25 07:47 BP 124/67 02/28/25 07:47 Pulse Ox 95 02/28/25 07:47 O2 Del Method Room Air 02/28/25 07:47 02/27/25 02/28/25 02/28/25 22:59 06:59 14:59 Intake Total 630 / 2320 50 / 2370 Balance 630 / 2320 50 / 2370 Weight last 48 hrs Weight 257 lb 7 oz Weight 258 lb 1.6 oz Weight 254 lb Weight 250 lb Physical Exam 2 GI: OTHER: Abdominal examination is benign abdomen soft nontender nondistended. Data 02/28/25 05:29 02/28/25 05:29 Micro: Microbiology 02/26/25 18:47 Blood Culture - Preliminary Blood NEGATIVE TO DATE 02/26/25 12:22 Blood Culture - Preliminary Blood NEGATIVE TO DATE A&P Assessment and plan (1) Acalculous cholecystitis: (2) Elevated LFTs: Plan Patient has been doing very well over the last 24 hours he is laboratory workup shows a normal white count, there is improvement of the AST and ALT with slight uptrend of the alk phos. Platelet level has remained stable. He does not have any symptoms this morning and has been tolerating diet for more than 24 hours. I had a discussion with the patient and also with the medical team since his symptoms are nonspecific before allowing him to transition to the outpatient setting we will like to obtain a HIDA scan to make sure that acute cholecystitis completely rule out as in the case of a positive HIDA scan will probably offer him surgery to prevent him from having recurrent episodes and additional symptoms. Patient shows understanding agrees with the plan additional management per medical team is appreciated. PDMP PDMP Reviewed: Not Reviewed Attestations 2 Medical Necessity Statement*: per medical team Coding Level of Care Code Acute Code for Chg Fwd Diagnoses Acalculous cholecystitis K81.9 Elevated LFTs R79.89
[2025-02-28] MEDS: doxycycline 100 MG in sodium chloride 0.9% (plus) 100 ML IV ×2 (08:59→19:57)
--- NOTE | 2025-02-28 10:14 | PC.CHAP ---
Pastoral Care Encounter/Spiritual Assessment Type of Contact [] Declined pruner visit [] Patient/Family/Request visit [] Outpatient visit [] Follow-up visit [] Physician referral [] Code/Alert [x] Routine visit [] Staff referral [] Actively dying [] Patient sleeping [x] Family support [] [] Out of room [] Palliative care [] [] Receiving care in room [] Pre-surgical visit [] Trauma [] Long length of stay [] ICU visit [] Other: Relational/Emotional Strength [] Patient feels connected with others/family/visitors/staff [] Distress [] Loneliness/isolation [] Abandonment Spirituality of Patient [x] Person of Wendie [] Attends [employer] of their Wendie [x] Believes in Prayer [] Reads Bible or Zoroastrianism materials [] There are Spiritual issues to be addressed Can Operator Interventions [x] Prayer [x] Active listening [] Non-anxious presence [] Spiritual/emotional support [] Crisis/trauma care [] Spiritual counseling [] Bereavement support [] Provided bereavement packet [x] Provided Bible/devotional materials [] Provided toy/stuffed animal, coloring book to patient or family member [] Provided Communion [] Anointing/[place] [] Salvation [x Completed spiritual assessment [] Other: Impact on Illness or Injury [] Angry [] Fearful [] Anxious [] Often cries [] Exhaustion [] Unable to work [] Unable to attend shinto [] Unable to walk/stand [] Unable to read [] Unable to drive [] Unable to eat/drink [] Unable to sleep [] Unable to be with family [] Patient intubated [] Other: Summary Time spent with patient 10 min
--- NOTE | 2025-02-28 10:42 | USCV_ITS ---
Ry Odell Age: 49 Gender: M : 1975 Exam Date: 02/28/2025 12:16 Ordering Phys: Daniel Roberts MD Technologist: [place] [facility] [place]: p[place]co BP: 126 / 74 HR: 73 Rhythm: Sinus Technical Quality: Adequate MEASUREMENTS (Male / Female) Normal Values 2D ECHO LVOT Diameter 2.1 cm LV Ejection Fraction MOD 4C 72.3 % LV Ejection Fraction MOD 2C 60.9 % LV Ejection Fraction 2C AL 60.5 % LA Diameter 3.6 cm RA Systolic Volume 4C AL 57.9 ml RA Systolic Volume 4C MOD 56.2 ml LA Sys Volume AL 52.3 cm cubed LA Sys Volume Index AL 24.0 cm cubed/m squared Aorta at Sinotubular Diameter 3.3 cm IVC Diameter 2.3 cm M-MODE LA Ao Ratio MM 1.2 AV Cusp Separation MM 2.5 cm DOPPLER AV Peak Velocity 112.0 cm/s LVOT Peak Velocity 75.0 cm/s AV Area Cont Eq vti 2.8 cm squared AV Area Cont Eq pk 2.3 cm squared MV Peak Velocity 111.0 cm/s MV Area PHT 4.3 cm squared Mitral E to A Ratio 1.2 TR Peak Velocity 138.0 cm/s TR Peak Gradient 7.6 mmHg TV Peak E Velocity 103.0 cm/s PV Peak Velocity 117.0 cm/s FINDINGS Left Ventricle Normal left ventricular size and systolic function, EF 61%. No regional wall motion abnormalities. Grade I/IV diastolic dysfunction (abnormal relaxation filling pattern), normal to mildly elevated filling pressures. Right Ventricle The right ventricle is normal in size and function. Right Atrium The right atrium is normal in size. Left Atrium The left atrium is normal in size. Mitral Valve No gross abnormalities noted Aortic Valve Thickened aortic valve. Tricuspid Valve No gross abnormalities noted Pulmonic Valve No gross abnormalities noted Pericardium Normal pericardium without effusion. Aorta Normal ascending aorta dimension. IVC Inferior vena cava not visualized. CONCLUSIONS Normal left ventricular size and systolic function, EF 61%. No regional wall motion abnormalities. Grade I/IV diastolic dysfunction (abnormal relaxation filling pattern), normal to mildly elevated filling pressures. Thickened aortic valve. Normal cardiac chamber sizes. There is no pericardial effusion. There are no intracardiac masses. Compared to the study from 03/20/2018, there may not be a significant change Dr Jason Khan MD FACC (Electronically Signed) Final Date: 28 February 2025 14:51 S
--- NOTE | 2025-02-28 11:02 | P.MISC_ITS ---
Miscellaneous Note Purpose of Documentation: Update on patient care Note: 49-year-old male who was admitted with s ymptoms of acute headache nausea no abdominal pain bowel imaging show evidence of possible acalculous cholecystitis. We have been discussing the possibility of a HIDA scan to rule out cholecystitis before allowing him to transition to the outpatient setting. Unfortunately HIDA scan will be done tomorrow instead of today. Therefore I had extensive discussion with the patient and we have decided that to the safest route of action will be to proceed with a laparoscopic cholecystectomy today for the imaging finding of acalculous cholecystitis. All the risk and benefits of the procedure were discussed with the patient including the risks of bleeding, infection, damage to surrounding structures including liver, duodenum, colon, risk of injuring bile ducts requiring extensive surgery at higher level of care facility, risk of retained stones, bile leak, bili Deya, need for subtotal cholecystectomy, hernia and wound related complications, need to conversion to open procedure. Patient shows understanding and would like to proceed. He is currently n.p.o. plan is to proceed in the early afternoon today.
[2025-02-28 12:16] VITALS: BP 110/70; PULSE 78; RESP 18; TEMP 36.8; O2SAT 94
--- NOTE | 2025-02-28 15:12 | P.PN_ITS ---
Subjective 2 Subjective: Denies abdominal pain, no nausea or vomiting. HIDA scan was wanted per review of prior note, however, no order, he had eaten breakfast this morning. Vitals/I&O/Wt Last Vital Signs Temp 98.2 F 02/28/25 12:16 Pulse 78 02/28/25 12:16 Resp 18 02/28/25 12:16 BP 110/70 02/28/25 12:16 Pulse Ox 94 02/28/25 12:16 O2 Del Method Room Air 02/28/25 12:16 02/28/25 02/28/25 02/28/25 06:59 14:59 22:59 Intake Total 50 / 2370 390 / 390 Balance 50 / 2370 390 / 390 Weight last 48 hrs Weight 116.772 kg Weight 117.072 kg Weight 115.212 kg Physical Exam 2 Narrative: Accompanied by his family. Const: COMMON NORMALS: patient oriented x3 and alert GENERAL APPEARANCE: c ooperative ORIENTATION/CONSCIOUSNESS: Yes awake HENMT: COMMON NORMALS: oropharynx normal Neck/C-Spine: COMMON NORMALS: no JVD Resp: COMMON NORMALS: normal respiratory effort and clear to auscultation bilaterally AUSCULTATION: clear to auscultation bilaterally Cardio: COMMON NORMALS: no JVD, regular rhythm, S1 normal heart sound present, S2 normal heart sound present and No murmurs present (Cardio) RHYTHM: regular rhythm HEART SOUNDS: S1 normal heart sound present and S2 normal heart sound present GI: COMMON NORMALS: Normal to inspection, nondistended, normoactive bowel sounds present, Soft to palpation and non-tender PALPATION: Yes Soft to palpation Extremity: COMMON NORMALS: no joint enlargement and no pedal edema Neuro: COMMON NORMALS: patient oriented x3 and moves all extremities S ENSORIUM/ORIENTATION: Yes alert Skin: COMMON NORMALS: no rashes or lesions noted GENERAL SKIN EXAM: no rashes or lesions noted Data 02/28/25 05:29 02/28/25 05:29 Micro: Microbiology 02/26/25 18:47 Blood Culture - Preliminary Blood NEGATIVE TO DATE 02/26/25 12:22 Blood Culture - Preliminary Blood NEGATIVE TO DATE A&P Assessment and plan (1) Fever: (2) Body aches: (3) Chills: (4) Nausea: (5) Thrombocytopenia: (6) Vomiting: (7) Elevated LFTs: (8) Thickening of wall of gallbladder: (9) Primary generalized epilepsy, major: (10) Acalculous cholecystitis: Plan #Fever body aches headache, chills #Possible tickborne disease #History of tick bites 2 weeks ago #Thrombocytopenia #Elevated liver enzymes #Gallbladder wall thickening, possible acute cholecystitis? #Nausea vomiting #History of seizures, stable on Depakote #History of gout #Acalculous cholecystitis HIDA scan was considered, however, I did not see an order and this morning he had breakfast, initially study ordered for tomorrow. His additionally reported that that he was getting dyspneic on exertion walking to the bathroom. Requested TTE for additional assessment with consideration of congestive hepatopathy. TTE reviewed, grade 1 diastolic dysfunction, normal ejection fraction. Discussed with surgery. Surgery further discussed with him consideration of options including proceeding to cholecystectomy which he preferred. Tentative plan for tomorrow. Reviewed CMP, noted T. bili 1.3, direct bilirubin 0.86 AST 82 ALT 123 alk phos 161. Repeat chemistry and CBC. Continue on Zosyn empirically for possible cholecystitis Follow-up tick panel. Reviewed serology, pending. Empirically on doxycycline x 10 days at this time. ? Valproic acid level is normal. ? Pending peripheral smear ? Zofran for nausea IV fluid had been stopped. Full Code SCDS For dvt ppx We will avoid heparin secondary to low platelets. PDMP PDMP Reviewed: Not Reviewed Attestations 2 Medical Necessity Statement*: Continue admission for assessment and management of possible cholecystitis. and High MDM includes amount and/or complexity of data reviewed/ordered [ resulted lab(s)/test(s), ordered lab(s)/test(s) and other healthcare professional discussion] as documented Diagnoses Fever R50.9 Body aches R52 Chills R68.83 Nausea R11.0 Thrombocytopenia D69.6 Vomiting R11.10 Elevated LFTs R79.89 Thickening of wall of gallbladder K82.8 Primary generalized epilepsy, major G40.309 Acalculous cholecystitis K81.9
[2025-02-28 16:00] VITALS: BP 142/64; PULSE 81; RESP 17; TEMP 36.8; O2SAT 97
[2025-02-28 20:00] VITALS: BP 121/73; PULSE 80; RESP 16; TEMP 36.5; O2SAT 96
[2025-02-28] MEDS: divalproex ER 500 mg Tablet (24H) 1500 MG PO (21:14)
[2025-03-01] VITALS (17 sets, daily range): BP systolic 99–113; BP diastolic 61–76; PULSE 63–72; RESP 12–20; TEMP 36.2–36.7; O2SAT 92–99
--- NOTE | 2025-03-01 01:51 | PC.NURSE ---
boil pt has on right buttock ruptured,
[2025-03-01] MEDS: piperacillin-tazobactam 3.375 GM in sodium chloride 0.9% (plus) 50 ML IV ×2 (05:44→14:06)
--- NOTE | 2025-03-01 05:46 | P.HPUD_ITS ---
Surgery/Procedure H&P Update DATE OF PROCEDURE: March 01, 2025 DATE H&P PERFORMED: 02/26/25 H&P UPDATE INFORMATION: I have reviewed H&P completed within last 30 days, I have examined patient prior to procedure, No changes to prior documentation, H&P is in [facility] EMR on date indicated and Risks and benefits of the procedure reviewed PLANNED PROCEDURE: Operation Date: 03/01/25 07:00 Proposed Procedures p Laparoscopic Cholecystectomy(Not Applicable) - Jefe Liu MD
[2025-03-01 05:49] LABS: Hematocrit 35.1 % (37-53); Hemoglobin 11.70 g/dL (11.27-16.99); Mean Corpuscular HGB Conc 33.3 g/dL (30-55); Mean Corpuscular Hemoglobin 30.5 pg (27-33); Mean Corpuscular Volume 91.6 fl (82-101); Nucleated Red Blood Cells % 0 %; Platelet Count 75 10^3/cmm (157-399); Red Blood Count 3.83 10^6/uL (3.85-5.65); White Blood Count 9.97 10^3/uL (3.29-11.43)
[2025-03-01 06:09] LABS: Alanine Aminotransferase 88 U/L (0-41); Albumin Level 2.6 g/dL (3.5-5.2); Alkaline Phosphatase 158 U/L (40-130); Anion Gap 11.8 (5-19); Aspartate Amino Transferase 52 U/L (0-40); Blood Urea Nitrogen 14 mg/dL (6-20); Calcium 8.0 mg/dL (8.5-10.5); Carbon Dioxide 24 mmol/L (22-29); Chloride 108 mmol/L (98-107); Creatinine Clr Calc Pharmacy 148.5544; Globulin 2.4 g/dL (1.3-4.6); Glucose 84 mg/dL (65-115); Osmolality Calculated 290 mOsm/kg (285-295); Potassium 3.8 mmol/L (3.5-5.1); Sodium 140 mmol/L (136-145); Total Protein 5.0 g/dL (6.6-8.7)
[2025-03-01 06:45] LABS: Slide Review Slide Review Perform
--- NOTE | 2025-03-01 06:59 | P.ANESASSM_ITS ---
Pre-Anesthetic Assessment Height/Weight: Height 1.83 m Weight 116.12 kg Temp Pulse Resp BP Pulse Ox O2 Del Method 97.5 F L 71 16 108/65 93 Room Air 03/01/25 04:00 03/01/25 04:00 03/01/25 04:00 03/01/25 04:00 03/01/25 04:00 03/01/25 04:00 Operation Date: 03/01/25 07:00 Proposed Procedures p Laparoscopic Cholecystectomy(Not Applicable) - Jefe Liu MD Familial anesthetic complications: None Was Beta Altagracia taken within 24 hours: N/A Was Clonidine taken within 24 hours: N/A Last intake: Intake Last Liquid Date 02/28/25 Last Liquid Time 23:50 Last Solid Date 02/25/25 Social No alcohol and No tobacco Exam alert, oriented x 3, clear to auscultation bilaterally and regular rate & rhythm Airway Mallampati: Class III Dentition: chipped Hepatic ? Liver injury Metabolic Morbid Obesity Anesthetic Plan ASA status: 3 Anesthesia: General Risk of > 500 ml blood loss (7ml/kg in children): No Medications/Allergies Home Medications ?Medication ?Instructions ?Recorded ?Confirmed ?Last Taken ?Type divalproex 500 mg tablet,extended See Rx Instructions .Route 12/14/24 02/26/25 02/26/25 08:00 Rx release 24 hr .COMPLEX #450 tabs acetaminophen 500 mg tablet 100 mg PO QID PRN Fever Or Pain 02/26/25 02/26/25 02/25/25 History (Tylenol Extra Strength) ibuprofen 200 mg tablet (Advil) 400 mg PO Q6H PRN Feve r Or Pain 02/26/25 02/26/25 02/25/25 History Allergies Allergy/AdvReac Type Severity Reaction Status Date / Time No Known Allergies Allergy Verified 05/20/23 08:01 Current Medications Generic Name Dose Route Start Last Admin Trade Name Freq PRN Reason Stop Dose Admin Acetaminophen 650 mg 02/26/25 19:48 02/27/25 18:47 Acetaminophen 325 Mg Tablet PO 650 mg On Hold: 03/01/25 06:17 Q4H PRN Administration Comment: Order held by Process MILD PAIN OR INCREASE TEMP Transfer Divalproex Sodium 1,000 mg 02/27/25 09:00 02/28/25 08:13 Divalproex Er 500 Mg Tablet (24h) PO 1,000 mg On Hold: 03/01/25 06:17 DAILY ALEXEI Administration Comment: Order held by Process Transfer Divalproex Sodium 1,500 mg 02/26/25 21:00 02/28/25 21:14 Divalproex Er 500 Mg Tablet (24h) PO 1,500 mg On Hold: 03/01/25 06:17 BEDTIME ALEXEI Administration Comment: Order held by Process Transfer Doxycycline Hyclate 100 mg/ 100 mls @ 100 mls/hr 02/26/25 17:15 02/28/25 21:31 Sodium Chloride IV Infused On Hold: 03/01/25 06:17 Q12H ALEXEI Infusion Comment: Order held by Process Protocol Transfer Piperacillin Sod/Tazobactam 50 mls @ 12.5 mls/hr 02/27/25 22:00 03/01/25 05:44 Sod 3.375 gm/ Sodium Chloride IV 12.5 mls/hr On Hold: 03/01/25 06:17 Q8H ALEXEI Administration Comment: Order held by Process Transfer Sodium Chloride 1,000 mls @ 30 mls/hr 03/01/25 06:45 03/01/25 06:39 Sodium Chloride 0.9% IV 03/02/25 06:44 30 mls/hr .Q24H ALEXEI Administration Ketorolac Tromethamine 15 mg 02/26/25 20:15 03/01/25 01:48 Ketorolac 30 Mg/Ml Inj IVP 03/03/25 20:14 15 mg On Hold: 03/01/25 06:17 Q6H ALEXEI Administration Comment: Order held by Process Transfer Pantoprazole Sodium 40 mg 02/26/25 20:30 02/28/25 21:55 Pantoprazole 40 Mg Sdv IVP 40 mg On Hold: 03/01/25 06:17 Q12H ALEXEI Administration Comment: Order held by Process Transfer [facility] Anesthesia Medical History Seizures Surgical History History of tonsillectomy Family History Other Cancer Social History (Reviewed 07/05/25 @ 11:33 by DALY Pérez Smoking and tobacco/nicotine status: never used tobacco/nicotine Alcohol intake: current Alcohol intake frequency: holidays/special occasions only Substance/Drug Use: never Data Anesthesia 03/01/25 05:33 03/01/25 05:33 Short CBC 02/28/25 03/01/25 Range/Units 05:29 05:33 WBC 8.87 9.97 (3.29-11.43) 10^3/uL Hgb 12.70 11.70 (11.27-16.99) g/dL Hct 37.5 35.1 L (37-53) % MCV 93.8 91.6 (82-101) fl Plt Count 59 L 75 L (157-399) 10^3/cmm Neut % (Auto) 38.1 30.1 % Neut # (Auto) 3.38 3.00 (1.8-7.7) 10^3/uL BMP 02/28/25 02/28/25 02/28/25 05:29 05:29 05:29 Sodium 140 Cancelled Potassium 3.8 Cancelled Chloride 106 Carbon Dioxide BUN Creatinine Glucose Calcium 02/28/25 02/28/25 02/28/25 05:29 05:29 05:29 Sodium Potassium Chloride Cancelled Carbon Dioxide 26 Cancelled BUN 12 Cancelled Creatinine 0.9 Glucose Calcium 02/28/25 02/28/25 02/28/25 05:29 05:29 05:29 Sodium Potassium Chloride Carbon Dioxide BUN Creatinine Cancelled Glucose 85 Cancelled Calcium 7.9 L Cancelled 03/01/25 05:33 Sodium 140 Potassium 3.8 Chloride 108 H Carbon Dioxide 24 BUN 14 Creatinine 0.8 Glucose 84 Calcium 8.0 L Liver Function 02/28/25 02/28/25 02/28/25 Range/Units 05:29 05:29 05:29 Total Bilirubin 1.3 H Cancelled (0.15-1.2) mg/dL Direct Bilirubin 0.86 H (0.00-0.30) mg/dL AST 82 H Cancelled (0-40) U/L ALT 123 H (0-41) U/L Alkaline Phosphatase (40-130) U/L Albumin (3.5-5.2) g/dL 02/28/25 02/28/25 02/28/25 Range/Units 05:29 05:29 05:29 Total Bilirubin (0.15-1.2) mg/dL Direct Bilirubin (0.00-0.30) mg/dL AST (0-40) U/L ALT Cancelled (0-41) U/L Alkaline Phosphatase 161 H Cancelled (40-130) U/L Albumin 2.8 L Cancelled (3.5-5.2) g/dL 03/01/25 Range/Units 05:33 Total Bilirubin 0.7 (0.15-1.2) mg/dL Direct Bilirubin 0.50 H (0.00-0.30) mg/dL AST 52 H (0-40) U/L ALT 88 H (0-41) U/L Alkaline Phosphatase 158 H (40-130) U/L Albumin 2.6 L (3.5-5.2) g/dL Blood Bank 02/28/25 12:58 Blood Type A Positive Rho(D) Type Rh positive Cardiac Studies: 2 Echocardiogram 02/28/25
[2025-03-01] MEDS: divalproex ER 500 mg Tablet (24H) 1000 MG PO (07:09)
[2025-03-01] MEDS: BUPivacaine 0.25% INJ 10 mL INJECTION (07:50)
[2025-03-01] MEDS: lidocaine-epi 1% 20 mL INJ 10 ML INJECTION (07:50)
--- NOTE | 2025-03-01 08:16 | PC.NURSE ---
0815- Family updated of surgical status
--- NOTE | 2025-03-01 08:49 | P.OP_ITS ---
Operative Report Date of procedure: March 01, 2025 Pre-op diagnosis: Acute acalculous cholecystitis Post-op diagnosis: Same Post-op findings: There was some free fluid in the right upper quadrant, the gallbladder have edematous fluid surrounding it and infiltrated in the pericholecystic tissue. Otherwise normal biliary anatomy Procedure done: Laparoscopic cholecystectomy Specimens removed/disposition: Gallbladder Surgeon: Jefe Liu MD Medical Front Desk Coordinator: DEBORA OR STaff Estimated blood loss: 5 Complications: none apparent Brief History: This is a 49-year-old male who presented to the hospital with nonspecific symptoms and imaging findings consistent for possible acalculous cholecystitis. After extensive workup and discussion with the patient we decided to proceed to the OR for a laparoscopic cholecystectomy. Procedure: Patient was brought into the OR, he was placed in a supine position. General anesthesia was given. The abdomen was prepped and draped in the usual sterile fashion. A timeout was conducted. I accessed the abdomen via a 5 mm Optiview port in the left upper quadrant. Initial pneumoperitoneum was obtained and no evidence of visceral injury during entry was noted. At 12 mm trocar was placed in the supraumbilical position under direct visualization. Additional 5 mm trocars were placed in the epigastrium right upper quadrant and right flank under direct visualization. Some free fluid was noted in the right upper quadrant in Morison's pouch and in the perihepatic region and it was aspirated. The gallbladder was grasped from the fundus and retracted cephalad, I then grasped the infundibulum and retracted in the inferolateral direction exposing the hepatocystic triangle. The peritoneum anterior to the hepatocystic triangle was opened with electrocautery, I carried this opening in the medial and lateral direction to the edges of the liver and then on the sides of the gallbladder to allow for better exposure. With careful blunt dissection as well as electrocautery I was able to encircle the cystic duct and artery, I also elevated lower third of the gallbladder from the liver bed, thus creating a critical view of safety. The cystic duct and artery were double clipped proximally and single clipped distally and transected. The gallbladder was removed from the liver bed using electrocautery. The gallbladder was retrieved in an Endo Catch bag via the umbilical trocar site. The liver bed and clips were inspected the area was hemostatic, there was no evidence of bile leak the clips appeared to be in good position. The liver bed was irrigated and suctioned. The supraumbilical trocar was removed and trocar site was closed with a 0 Vicryl Dmitriy-Jessica suture passer under direct visualization. The epigastrium right upper quadrant right flank trocars were removed under direct visualization, the left upper quadrant trocar was used to evacuate the pneumoperitoneum and subsequently removed. Local anesthesia was infiltrated. Hemostasis was achieved from the trocar sites. The wounds were closed in layers using #3-0 Vicryl for the subcutaneous tissue #4 Monocryl for the skin. At the end of the procedure all counts were correct, the patient tolerated well the procedure was transferred to the PACU in stable condition.
--- NOTE | 2025-03-01 09:35 | ANE.PACU2 ---
Inpatient post-anesthesia follow up: Airway intact: Yes Vital signs: Temperature 97.8 F Pulse Rate 65 Respiratory Rate 18 Blood Pressure 112/72 Pulse Oximetry 92 Oxygen Delivery Me thod Room Air Oxygen Flow Rate 8 Fraction of Inspir ed Oxygen Hydration adequate: Yes Nausea and vomiting: No Pain level: 1 Mental status: Baseline
[2025-03-01] MEDS: oxyCODONE 5 mg IR Tab/Cap PO (12:33)
--- NOTE | 2025-03-01 14:01 | P.DS_ITS ---
Discharge Providers Date of Admission: 02/26/25 15:20 Date of Discharge: March 01, 2025 Attending Provider at Admission: Jacqui Dye MD Attending Provider at Discharge: Daniel Roberts Primary Care Provider: Javier Hernandez MD Diagnoses at Discharge Discharge Diagnosis 1. Fever: 2. Body aches: 3. Chills: 4. Nausea: 5. Thrombocytopenia: 6. Vomitin. Elevated LFTs: 8. Thickening of wall of gallbladder: 9. Primary generalized epilepsy, major: 10. Acalculous cholecystitis: Reason for Visit Reason for Visit: Headache N/V sent from Brief History: Ry Odell is a 49 year old male with past medical history of seizures, gout, pilonidal cyst presented to the hospital today with complaint of headache body aches fatigue this started past week Friday/Friday. He stated about 2 weeks ago he found 4 ticks on him that he took off while he was in the shower. He stated at first it was just headache and feeling tired however this morning after he showered he started vomiting. He just felt sick. Denies any alcohol use denies diarrhea. No ill contacts. Does not drink from water. Has had a low-grade fever chills body aches. Does have a history of seizures and is on Depakote at home. Denies any abdominal pain at this time. Does have a slight cough however has no other symptoms. Also has a reduced appetite. Also reports darker than usual urine. Patient is on 1 g of Depakote in the morning and 1.5 g at bedtime. In the ER noted to have elevated liver enzymes AST 208, ALT 230, alkaline phosphatase 166, platelets 60, TSH 4.54, procalcitonin 0.92. Urinalysis positive for nitrates, 2+ bilirubin, 4+ urobilinogen, trace leukocyte esterase. Hepatitis panel was negative. CT abdomen pelvis shows mild nonspecific wall thickening of the gastric antrum and duodenal sweep with subtle adjacent edema. Query gastritis/peptic ulcer disease. Mild gallbladder wall thickening and pericholecystic stranding/edema without radiodense gallstones. If clinical indicated HIDA scan would provide a more sensitive evaluation for acute gallbladder pathology. Trace right pleural effusion. Gallbladder ultrasound shows marked gallbladder wall thickening without gallstones. If clinically indicated HIDA scan would provide a more sensitive evaluation for acute gallbladder pathology. Patient was seen by general surgeon in ER. He recommends ordering empiric antibiotics for short course. No indication for surgery at this time. Patient denies smoking and alcohol use. Hospital Course Hospital Course He was admitted and further treated for possible acute acalculous cholecystitis, received antibiotic coverage with Zosyn, and due to tick bites with possible tickborne infection was treated with doxycycline. Tick panel is still pending. Please follow-up. Further liver dysfunction differentials considered, possibly with Depakote effect, although he has been on it for years. With noted thrombocytopenia, transaminitis, cholecystitis, but without sign of pancreatitis. Lipase was normal. Depakote level was checked and was normal. As per additional discussion with patient difficult to exclude that the effects on the liver and gallbladder were not secondary to Depakote, although real p ossibility considered of true gallbladder disease given the wall thickening, as well as as per discussion with neurologist lack of ammonia elevation suggesting an alternative explanation, additionally with improving transaminases and thrombocytopenia. He underwent laparoscopic cholecystectomy with an uneventful procedure, subsequently tolerating oral diet. Discharged on empiric course of Augmentin and doxycycline pending tick panel. Please reassess liver parameters and blood counts. He is asked to follow-up with neurology for reassessment of epilepsy regimen and Depakote therapy. Physical Exam Const: COMMON NORMALS: patient oriented x3 and alert GENERAL APPEARANCE: cooperative ORIENTATION/CONSCIOUSNESS: Yes awake HENMT: COMMON NORMALS: oropharynx normal Neck/C-Spine: COMMON NORMALS: no JVD Resp: COMMON NORMALS: normal respiratory effort and clear to auscultation bilaterally AUSCULTATION: clear to auscultation bilaterally Cardio: COMMON NORMALS: no JVD, regular rhythm, S1 normal heart sound present, S2 normal heart sound present and No murmurs present (Cardio) RHYTHM: regular rhythm HEART SOUNDS: S1 normal heart sound present and S2 normal heart sound present GI: COMMON NORMALS: Normal to inspection, nondistended, normoactive bowel sounds present, Soft to palpation and non-tender PALPATION: Yes Soft to palpation OTHER: Closed trocar incisions without bleeding or drainage. Mild abdominal distent ion. Extremity: COMMON NORMALS: no joint enlargement and no pedal edema Neuro: COMMON NORMALS: patient oriented x3 and moves all extremities SENSORIUM/ORIENTATION: Yes alert Skin: COMMON NORMALS: no rashes or lesions noted GENERAL SKIN EXAM: no rashes or lesions noted Discharge Data Studies Completed and Pending Completed Studies During Hospitalization Category Date Time Status CT abdomen pelvis w con* [id number] Stat Cat Scan 02/26/25 12:55 Completed CXRP [XR chest 1V portable [id number]] Routine Exams 02/27/25 09:42 Completed MR MRCP [id number] Stat MRI 02/26/25 17:10 Completed CV. echo complete* [id number] Routine Ultrasound 02/28/25 10:42 Completed US gall bladder [id number] Stat Ultrasound 02/26/25 11:33 Completed Pending at discharge Category Date Time Status ABO/Rh Type Routine Lab 02/28/25 12:58 Results Blood Culture Stat Lab 02/26/25 18:47 Results Complete Crossmatch Routine Lab 02/28/25 12:58 Results Platelets Leuko-Reduced Routine Lab 02/28/25 12:58 Results Tick Panel Stat Lab 02/26/25 18:47 Results Pathology: Surgical [PTH] Routine Pth 03/01/25 08:38 Received Radiology Impressions Gallbladder Ultrasound 02/26/25 11:33 IMPRESSION: Marked gallbladder wall thickening without gallstones. If clinically indicated, HIDA scan would provide a more sensitive evaluation for acute gallbladder pathology. Abdomen/Pelvis CT 02/26/25 12:55 IMPRESSION: 1. Mild nonspecific wall thickening of the gastric antrum and duodenal sweep with subtle adjacent edema. Query gastritis/peptic ulcer disease. 2. Mild gallbladder wall thickening and pericholecystic stranding/edema without radiodense gallstones. If clinically indicated, HIDA scan would provide a more sensitive evaluation for acute gallbladder pathology. 3. Trace right pleural effusion. 4. Additional findings, as above. COMMENTS: Consistent with the [employer]'s Incidental Findings Committee white paper (J Am Sally Radiol 2018): Any incidental renal lesion less than 1 cm or classified as too small to characterize, or any incidental cystic renal lesion characterized as simple-appearing, is likely benign. No follow-up imaging is recommended for these lesions per consensus recommendations based on imaging criteria. Cholangiopancreatography MRI 02/26/25 17:10 IMPRESSION: 1. Pericholecystic fluid and edema adjacent to the head of the pancreas, descending portion of the duodenum and along the anterior renal fascia more prominently on the right represents acute inflammatory process, pancreatitis or possibly acalculous cholecystitis. 2. Limited MRCP due to significant motion artifacts. Choledocholithiasis cannot be adequately evaluated. Chest X-Ray 02/27/25 09:42 IMPRESSION: No acute pulmonary finding. Laboratory Results WBC 9.97 10^3/uL (3.29-11.43) 03/01/25 05:33 RBC 3.83 10^6/uL (3.85-5.65) L 03/01/25 05:33 Hgb 11.70 g/dL (11.27-16.99) 03/01/25 05:33 Hct 35.1 % (37-53) L 03/01/25 05:33 MCV 91.6 fl (82-101) 03/01/25 05:33 MCH 30.5 pg (27-33) 03/01/25 05:33 MCHC 33.3 g/dL (30-55) 03/01/25 05:33 RDW 13.6 % (12.1-15.1) 03/01/25 05:33 Plt Count 75 10^3/cmm (157-399) L 03/01/25 05:33 MPV 10.1 fL (7.4-10.4) 03/01/25 05:33 Neut % (Auto) 30.1 % 03/01/25 05:33 Lymph % (Auto) 60.2 % 03/01/25 05:33 [place] % (Auto) 7.9 % 03/01/25 05:33 Eos % (Auto) 0.2 % 03/01/25 05:33 Baso % (Auto) 0.5 % 03/01/25 05:33 Neut # (Auto) 3.00 10^3/uL (1.8-7.7) 03/01/25 05:33 Lymph # (Auto) 6.0 10^3/uL (0.8-4.8) H 03/01/25 05:33 [place] # (Auto) 0.8 10^3/uL (0.2-0.9) 03/01/25 05:33 Eos # (Auto) 0.0 10^3/uL (0.0-0.8) 03/01/25 05:33 Baso # (Auto) 0.1 10^3/uL (0.0-0.1) 03/01/25 05:33 Nucleated RBC % (auto) 0 % 03/01/25 05:33 Nucleated RBCs # 0.0 /100WBC 03/01/25 05:33 Peripher Smr Path Cons Sent for review 02/26/25 10:35 PT 16.40 SECONDS (12.1-14.9) H 02/27/25 03:47 INR 1.23 (0.8-1.2) H 02/27/25 03:47 APTT 33.1 SECONDS (23.9-36.7) 02/26/25 10:35 Sodium 140 mmol/L (136-145) 03/01/25 05:33 Potassium 3.8 mmol/L (3.5-5.1) 03/01/25 05:33 Chloride 108 mmol/L (98-107) H 03/01/25 05:33 Carbon Dioxide 24 mmol/L (22-29) 03/01/25 05:33 Anion Gap 11.8 (5-19) 03/01/25 05:33 BUN 14 mg/dL (6-20) 03/01/25 05:33 Creatinine 0.8 mg/dL (0.7-1.2) 03/01/25 05:33 GFR Calculation 103.2 mL/min (90-130) 03/01/25 05:33 Glucose 84 mg/dL (65-115) 03/01/25 05:33 Calculated Osmolality 290 mOsm/kg (285-295) 03/01/25 05:33 Calcium 8.0 mg/dL (8.5-10.5) L 03/01/25 05:33 Magnesium 1.9 mg/dL (1.7-2.3) 02/28/25 05:29 Total Bilirubin 0.7 mg/dL (0.15-1.2) 03/01/25 05:33 Direct Bilirubin 0.50 mg/dL (0.00-0.30) H 03/01/25 05:33 GGT 335 U/L (8-61) H 02/26/25 10:35 AST 52 U/L (0-40) H 03/01/25 05:33 ALT 88 U/L (0-41) H 03/01/25 05:33 Alkaline Phosphatase 158 U/L (40-130) H 03/01/25 05:33 Ammonia 48 umol/L (16-60) 02/26/25 12:22 Creatine Kinase 109 U/L (39-308) 02/26/25 18:47 Total Protein 5.0 g/dL (6.6-8.7) L 03/01/25 05:33 Albumin 2.6 g/dL (3.5-5.2) L 03/01/25 05:33 Globulin 2.4 g/dL (1.3-4.6) 03/01/25 05:33 Lipase 46 U/L (13-60) 02/26/25 10:35 Procalcitonin 0.92 ng/mL (0-0.5) H 02/26/25 10:35 TSH 4.54 uIU/mL (0.27-4.20) H 02/26/25 10:35 Urine Color Port Orange (Yellow) A 02/26/25 11:15 Urine Appearance Clear (CLEAR) 02/26/25 11:15 Urine pH 6.0 (5-7) 02/26/25 11:15 Ur Specific [place] 1.027 (1.005-1.030) 02/26/25 11:15 Urine Protein 1+ (Negative) A 02/26/25 11:15 Urine Glucose (UA) Negative (Normal) 02/26/25 11:15 Urine Ketones Trace (Negative) 02/26/25 11:15 Urine Blood Negative (Negative) 02/26/25 11:15 Urine Nitrate Positive (Negative) A 02/26/25 11:15 Urine Bilirubin 2+ (Negative) H 02/26/25 11:15 Urine Urobilinogen 4.0 mg/dL (Negative) H 02/26/25 11:15 Ur Leukocyte Esterase Trace (Negative) A 02/26/25 11:15 Urine RBC 3-5 /hpf (0-2) 02/26/25 11:15 Urine WBC 0-5 /hpf (0-5) 02/26/25 11:15 Ur Squamous Epith Cells 0-5 /hpf (0-5) 02/26/25 11:15 Amorphous Sediment Not Reportable 02/26/25 11:15 Urine Bacteria None seen /hpf (NONE) 02/26/25 11:15 Hyaline Casts 2.05 /lpf 02/26/25 11:15 Acetaminophen < 5.0 ug/mL (10-30) L 02/26/25 10:35 Valproic Acid 84.9 ug/mL (50-100) 02/26/25 10:35 Lyme Ab (Western Blot) <0.90 index 02/26/25 18:47 Hepatitis A IgM Ab Non-reactive (Nonreactive) 02/26/25 12:22 Hep Bs Antigen Non-reactive (Nonreactive) 02/26/25 12:22 Hep B Core IgM Ab Non-reactive (Nonreactive) 02/26/25 12:22 Hepatitis C Antibody Non-reactive (Nonreactive) 02/26/25 12:22 Blood Type A Positive 02/28/25 12:58 Rho(D) Type Rh positive 02/28/25 12:58 Vitals Last Vital Signs Temp 97.8 F 03/01/25 10:43 Pulse 65 03/01/25 10:43 Resp 18 03/01/25 12:33 BP 112/72 03/01/25 10:43 Pulse Ox 92 03/01/25 10:43 O2 Del Method Room Air 03/01/25 10:43 O2 Flow Rate 8 03/01/25 09:07 Discharge Plan Discharge Patient Disposition: Home Condition: Stable Prescriptions: New polyethylene glycol 3350 [Miralax] 17 gram powder in packet 17 g PO DAILY 7 Days Qty: 7 0RF oxycodone 5 mg tablet 5 mg PO Q8H PRN (Reason: pain) 5 Days Qty: 14 0RF amoxicillin-pot clavulanate 875-125 mg tablet 1 tab PO BID 5 Days Qty: 10 0RF doxycycline hyclate 100 mg capsule 100 mg PO BID 7 Days Qty: 14 0RF Continued divalproex 500 mg tablet extended release 24 hr See Rx Instructions .ROUTE .COMPLEX Qty: 450 0RF Dose Instruction: TAKE 2 TABLETS BY MOUTH IN THE MORNING, THEN TAKE 3 TABLETS IN THE EVENING Rx Instructions: TAKE 2 TABLETS BY MOUTH IN THE MORNING, THEN TAKE 3 TABLETS IN THE EVENING; acetaminophen [Tylenol Extra Strength] 500 mg Tablet 100 mg PO QID PRN (Reason: Fever Or Pain) Discontinued ibuprofen [Advil] 200 mg Tablet 400 mg PO Q6H PRN (Reason: Fever Or Pain) Discharge Order = DC NOW: Discharge Order (Routine); Ordered 03/01/25 Ordered By: Daniel Roberts Referrals: Kaitlin Fernández MD [Physician, Neurology] - 03/10/25 11:15 am Referral Note: Jefe Liu MD [Physician, General Surgery] - 03/15/25 9:15 am Javier Hernandez MD [Primary Care Provider, [facility]] - 03/08/25 11:15 am Discharge Diet: Advance as tolerated Discharge Activity: Limit activity as instructed Patient Instructions: Doxycycline (By mouth) (Acticlate, Adoxa, Avidoxy, Monodox, Doryx), Amoxicillin/Clavulanate Potassium (By mouth) (Augmentin, Augmentin..., Oxycodone, Rapid Release (By mouth), Polyethylene Glycol 3350 (By mouth) (Miralax, Healthylax..., Cholecystitis (DC), Acute Wound Care (DC), Laparoscopic Cholecystectomy (DC), Opioid Safety, Post Anesthesia Care, Patient Portal & Ashlyn Instructions Activity Restrictions/Additional Instructions: General Surgery instructions: Please do not lift anything heavier than 10 pounds, for the next 4 to 6 weeks. You can walk is much as possible, this will help you recover faster. You can shower starting the day after tomorrow, let soap and water run over your wound and then pat dry. Please take your medication as indicated if you are taking opioids please do not forget to take a stool softener Warning signs: Return to the hospital if you have fever, chills, severe abdominal pain that is getting worse over time despite your pain medication or if your eyes or skin are turning yellow Follow-up with your primary doctor in 4 to 7 days for reassessment of left function, platelet level, follow-up of final results of tick panel. Would discontinue ibuprofen and avoid NSAIDs to reduce risk of liver injury. Follow-up with neurology to further discuss continuation of Depakote given liver abnormality, low platelets. Follow-up with surgery in 1 week for reassessment after cholecystectomy. Seek medical attention in case of any worsening or new concerning symptoms. Discharge Attestations Time Spent in Discharge Care*: greater than 30 min Quality Metrics Clinical Quality Measures [ No reported AMI, CVA or VTE this stay] Coding Level of Care Code 01296 Total time (in minutes) for Discharge: 45 Diagnoses Fever R50.9 Body aches R52 Chills R68.83 Nausea R11.0 Thrombocytopenia D69.6 Vomiting R11.10 Elevated LFTs R79.89 Thickening of wall of gallbladder K82.8 Primary generalized epilepsy, major G40.309 Acalculous cholecystitis K81.9
[2025-03-07 18:19] LABS: RMSF IGG NOT DETECTED; RMSF IGM NOT DETECTED
== END 2025-03-01 17:15 | disposition home or self-care (01) | DRG 419 ==
LOC: ER 10:40 → ER IP 16:03 → MEDSURG 18:21
PROVIDERS: Surgery; Admitting Provider Internal Medicine; Emergency Provider Family Medicine; PCP Family Medicine; Visit Provider Internal Medicine
PROC: 0FT44ZZ Resection of Gallbladder, Percutaneous Endoscopic Approach (ICD-10-PCS; CPT 47562; principal; 2025-03-01 07:00)
DX: K81.0 Acute cholecystitis (principal); G40.409 Other generalized epilepsy and epileptic syndromes, not intractable, without status epilepticus; T14.8XXA Other injury of unspecified body region, initial encounter; L08.9 Local infection of the skin and subcutaneous tissue, unspecified; W57.XXXA Bitten or stung by nonvenomous insect and other nonvenomous arthropods, initial encounter; D69.6 Thrombocytopenia, unspecified; K29.90 Gastroduodenitis, unspecified, without bleeding
CPT/HCPCS: 36415; 71045; 74177; 74181; 76705; 80048; 80053; 80074; 80076; 80164; 80307; 80503; 81001; 82140; 82550; 82977; 83690; 83735; 84145; 84443; 85025; 85610; 85730; 86618; 86666; 86757; 86900; 87040; 88304; 93005; 93306; 96365; 96367; 96375; 99285; J1885; J2270; J2405; J2470; J2543; J2704; J3490; J7030; J9999